=== PATIENT | male | born 1970 | race Caucasian/White ===

== ENCOUNTER 2017-02-08 07:59 | Outpatient (CLI) | payer MEDICAID ==
[~2017-02-08] VITALS: Ht 175.3 cm; Wt 113.6 kg
--- NOTE | ~2017-02-08 | HEMODYNAMI ---
PATIENT:WILMER WEISS MEDICAL RECORD: [id number] : 66 LOCATION:[facility] ADMISSION DATE: 02/08/17 Generatedon:02/08/201710:01 Patient name: WILMER WEISS Patient #: [id number] SSN: D OB: 1970 Date of study: 02/08/2017 Page: Of Hemodynamic Procedure Report Patient Data Patient Demographics Procedure consent was obtained First Name: WILMER Gender: Male Last Name: ISELA : 1970 Middle Initial: W Age: 46 year(s) Patient #: [id number] Race: Additional ID: [id number] Contact details Address: [address] [place] [address] State: [place] City: [place] Zip code: [address] Admission Admission Data Admission Date: 02/08/2017 Admission Time: 7:59 Lab Results Lab Result Date: 02/08/2017 Lab Result Time: 0:00 Biochemistry Name Units Result Min Max BUN mg/dl 29 --(----)-* 7 18 Creatinine mg/dl 1.1 --(--*-)-- 0.6 1.3 CBC Name Units Result Min Max Hemoglobin g/dl 13.9 --(*---)-- 13.5 17.5 Procedure Procedure Types Cath Procedure Diagnostic Procedure [facility] w/Coronaries FFR/IVUS Intra-Coronary IVUS Initial PCI Procedure Coronary Stent Initial Miscellaneous Procedures Moderate Sedation up to 30 minutes Procedure Description Procedure Date Procedure Date: 02/08/2017 Procedure Start Time: 9:28 Procedure End Time: 10:00 Procedure Staff Name Function Eyad Martínez MD Performing Physician Jane Casarez RN Nurse Fatmata Crabtree RT Scrub Julieta Gil RT Monitor Indication Angina Procedure Data Cath Procedure Fluoroscopy Diagnostic fluoroscopy Total fluoroscopy Time: 8.4 time: 8.4 min min Diagnostic fluoroscopy Total fluoroscopy dose: dose: 1879 mGy 1879 mGy Contrast Material Contrast Material Type Amount (ml) Isovue 300 176 Entry Location Entry Primary Successful Side Size Upsize Upsize Entry Closure Zapata ccessful Closure Location (Fr) 1 (Fr) 2 (Fr) Remarks Device Remarks Radial Right 6 Fr Mechanical artery Short Compression Femoral Right 5 Fr 6 Fr Exoseal artery Short Estimated blood loss: 5 ml Diagnostic catheters Device Type Used For End Catheter Placement Diagnostic Terumo 5Fr Multi-vessel Box Elder 110cm catheter Angiography Diagnostic Infinity 5Fr Left Coronary JL 4.0 catheter Angiography Diagnostic Infinity 5Fr Right Coronary AR 2 MOD catheter Angiography Procedure Complications No complications Procedure Medications Medication Administration Route Dosage Oxygen NC 2 l/min Lidocaine 2% added to field 20 Heparin Flush Bag added to field 2 bags (1000units/500ml NS) 0.9% NaCl I.V. 100 ml/hr Versed I.V. 1 mg Fentanyl I.V. 50 mcg Versed I.V. 1 mg Fentanyl I.V. 50 mcg Versed I.V. 1 mg Fentanyl I.V. 50 mcg Versed I.V. 1 mg Fentanyl I.V. 50 mcg Radial Cocktail I.A. 1 syringe (Verapomil 2mg/Nitro 400mcg/Heparin 1500units) Fentanyl I.V. 100 mcg Heparin Bolus I.V. 4000 units Hemodynamics Rest HGB: 13.9 (g/dl) Heart Rate: 55 (bpm) Pressure Samples Time Site Value (mmHg) Purpose Heart Use Rate(bpm) 9:33 LV 64/23,33 Snapshot 77 Snapshots Pre Cath Intra NCS Post Cath Vital Signs Time Heart Resp SPO2 NIBP (mmHg) Rhythm Pain Sedation Rate (ipm) (%) Status Level (bpm) 9:04:47 54 16 99 160/97(139) NSR 0 (11) 10(A) , No pain 9:08:56 65 25 100 170/100(138) NSR 0 (11) 10(A) , No pain 9:13:08 57 20 96 151/93(126) NSR 0 (11) 10(A) , No pain 9:17:14 62 20 96 145/97(118) NSR 0 (11) 10(A) , No pain 9:21:18 59 16 96 142/100(115) NSR 0 (11) 10(A) , No pain 9:25:20 56 18 96 152/104(125) NSR 0 (11) 9(A) , No pain 9:30:31 64 16 97 159/111(133) NSR 0 (11) 9(A) , No pain 9:34:43 72 18 92 136/87(114) NSR 0 (11) 10(A) , No pain 9:38:45 63 16 93 146/90(102) NSR 0 (11) 9(A) , No pain 9:42:48 69 16 94 144/94(112) NSR 0 (11) 9(A) , No pain 9:46:52 70 16 96 158/100(145) NSR 0 (11) 10(A) , No pain 9:51:00 82 19 95 143/104(120) NSR 0 (11) 10(A) , No pain 9:55:02 81 21 96 158/100(117) NSR 0 (11) 10(A) , No pain 9:59:11 69 17 96 139/90(117) NSR 0 (11) 10(A) , No pain Medications Time Medication Route Dose Verified Delivered Reason Notes Effectiveness by by 9:07:14 Oxygen NC 2 l/min Eyad Buffie used for Mauricio Casarez RN procedure 9:07:21 Lidocaine 2% added 20ml Eyad Eyad for local to vial Mauricio Martínez MD anesthetic field 9:07:27 Heparin Flush added 2 bags Eyad Eyad used for Bag to Mauricio Martínez MD procedure (1000units/500ml field NS) 9:07:36 0.9% NaCl I.V. 100 Eyad Buffie Per physician ml/hr Mauricio Casarez RN 9:12:42 Versed I.V. 1 mg Eyad Buffie for sedation Mauricio Casarez RN 9:12:52 Fentanyl I.V. 50 mcg Eyad Buffie for sedation Mauricio Casarez RN 9:17:53 Versed I.V. 1 mg Eyad Buffie for sedation Mauricio Casarez RN 9:17:57 Fentanyl I.V. 50 mcg Eyad Buffie for sedation Mauricio Casarez RN 9:23:55 Versed I.V. 1 mg Eyad Buffie for sedation Mauricio Casarez RN 9:23:57 Fentanyl I.V. 50 mcg Eyad Buffie for sedation Mauricio Casarez RN 9:29:13 Versed I.V. 1 mg Eyad Buffie for sedation Mauricio Casarez RN 9:29:16 Fentanyl I.V. 50 mcg Eyad Lara for sedation Mauricio Casarez RN 9:31:43 Radial Cocktail I.A. 1 Eyad Castano for (Verapomil syringe Mauricio Martínez MD vasodilation 2mg/Nitro 400mcg/Heparin 1500units) 9:37:09 Fentanyl I.V. 100 mcg Eyad Castano for sedation Mauricio Martínez MD 9:47:08 Heparin Bolus I.V. 4000 Eyad Lara for verif ied units Mauricio Casarez RN anticoagulation with dr martínez Procedure Log Time Note 8:49:26 Informed consent obtained and on chart 8:49:42 Diagnostic Cath Status : Elective 8:50:05 Indication : Angina 8:50:30 Jane Casarez RN sent for patient. Start room use. 8:50:32 Time tracking: Regular hours 8:50:37 Plan of Care:Hemodynamics will remain stable., Cardiac rhythm will remain stable., Comfort level will be maintained., Respiratory function will remain adequate., Patient/ family verbilizes understanding of procedure., Procedure tolerated without complication., Recovers from procedure without complications.. 8:57:36 Patient received from Pre/Post Procedure Room to CCL 2 Alert and oriented. Tansferred to table in Supine position. 8:57:37 Warm blankets applied, and otilio hugger turned on for patient comfort. 8:57:37 Correct patient and procedure confirmed by team. 8:57:38 ECG and BP/O2 sat monitors applied to patient. 9:02:22 Full Disclosure recording started 9:03:44 Vital chart was started 9:06:38 Baseline sample Acquired. 9:06:43 Rhythm: sinus rhythm 9:06:56 H&P Date Dictated: 01/26/2017 Within 30 days and on chart., H&P Addendum completed by physician on day of procedure. (MUST COMPLETE FOR ALL OUTPATIENTS). 9:06:57 Pre-procedure instructions explained to patient. 9:06:57 Pre-op teaching completed and patient verbalized understanding. 9:07:08 Family in patients room. 9:07:14 Oxygen 2 l/min NC was administered by Jane Casarez RN; used for procedure; 9:07:21 Lidocaine 2% 20ml vial added to field was administered by Eyad Martínez MD; for local anesthetic; 9:07:27 Heparin Flush Bag (1000units/500ml NS) 2 bags added to field was administered by Eyad Martínez MD; used for procedure; 9::36 0.9% NaCl 100 ml/hr I.V. was administered by Jane Casarez RN; Per physician; 9:07:37 Patient NPO since Midnight. 9::52 Is the patient allergic to Iodine/contrast media? No. 9::53 Was the patient premedicated? No 9::54 Is patient on blood thinner?Yes 9::56 ACC The patient was administered the following blood thiners within the last 24 hours: ACCPlavix 9:08:37 Previous problem with sedation/anesthesia? Yes angry upon awakening 9:09:26 Patient diabetic? No. 9::29 Snore? Yes 9:09:30 Sleep apnea? No 9:09:36 Deviated septum? No 9::38 Opens mouth fully? Yes 9:09:40 Sticks out tongue? Yes 9:09:43 Airway obstruction? No ? 9:09:46 Dentures? No ? 9:09:49 Pre procedure: right dorsailis pedis pulse 1+ Palpable, but thready & weak; easily obliterated 9::53 Pre procedure: left dorsailis pedis pulse 1+ Palpable, but thready & weak; easily obliterated 9:09:56 Patient pain scale 0/10 ?. 9:10:02 IV patent on arrival in left forearm with 0.9% NaCl at [facility]. 9:11:36 Lab Result : BUN 29 mg/dl 9::36 Lab Result : Creatinine 1.1 mg/dl 9:11:36 Lab Result : Hemoglobin 13.9 g/dl 9:11:39 Lab results completed and on chart. 9:11:42 Right Radial & Right Groin area was prepped with chlora-prep and draped in sterile fashion 9::43 Alarms reviewed by R. N. 9:11:43 Sharps counted by scrub and verified by R.N. 9:11:45 Physician arrived 9::46 --------ALL STOP TIME OUT------ 9::46 Final Timeout: patient, procedure, and site verified with staff and physician. All members of the team are in agreement. 9:11:48 Right Radial & Right Groin site verified by team. 9:11:50 Physical assessment completed. ASA score P 2 - A patient with mild systemic disease as per Eyad Martínez MD. 9:11:54 Sedation plan: IV Moderate Sedation Versed, Fentanyl 9:12:42 Versed 1 mg I.V. was administered by Jane Casarez RN; for sedation; 9:12:52 Fentanyl 50 mcg I.V. was administered by Jane Casarez RN; for sedation; 9:15:22 Use device set Radial Dx 9:15:24 Acist Syringe opened to sterile field. 9:15:24 Medline Cath Pack opened to sterile field. 9:15:24 Bag Decanter opened to sterile field. 9:15:25 Terumo 6Fr Slender Glidesheath opened to sterile field. 9:15:25 St Isac 260cm J .035 wire opened to sterile field. 9:15:25 Acist Hand Control opened to sterile field. 9:15:26 Acist Manifold opened to sterile field. 9:15:26 Tegaderm 4 x 4 opened to sterile field. 9:15:27 MBrace Wrist Support opened to sterile field. 9:17:53 Versed 1 mg I.V. was administered by Jane Casarez RN; for sedation; 9:17:57 Fentanyl 50 mcg I.V. was administered by Jane Casarez RN; for sedation; 9:23:55 Versed 1 mg I.V. was administered by Jane Casarez RN; for sedation; 9:23:57 Fentanyl 50 mcg I.V. was administered by Jane Casarez RN; for sedation; 9:27:48 Procedure started. 9:27:50 Zero performed for pressure channel P1 9:28:01 Local anesthetic to right radial artery with Lidocaine 2% by Eyad Martínez MD.INITIAL ACCESS ONLY 9:28:10 A 6 Fr Short sheath was inserted into the Right Radial artery 9:29:13 Versed 1 mg I.V. was administered by Jane Casarez RN; for sedation; 9:29:16 Fentanyl 50 mcg I.V. was administered by Jane Casarez RN; for sedation; 9:31:43 Radial Cocktail (Verapomil 2mg/Nitro 400mcg/Heparin 1500units) 1 syringe I.A. was administered by Eyad Martínez MD; for vasodilation; 9:31:44 A Diagnostic Terumo 5Fr Box Elder 110cm catheter was advanced over the wire and used for Multi-vessel Angiography. 9:33:24 LV hemodynamics recorded. 9:33:31 LV gram done using ASIF 9:33:34 Injector settings: Ml/sec: 5, Volume: 15, 9:33:43 EF : 60 % 9:34:01 Catheter removed. 9:36:05 Terumo 5Fr Donnellson Sheath opened to sterile field. 9:36:15 Local anesthetic to right femoral artery with Lidocaine 2% by Eyad Martínez MD.ADDITIONAL ACCESS 9:37:09 Fentanyl 100 mcg I.V. was administered by Eyad Martínez MD; for sedation; 9:39:20 A 5 Fr sheath was inserted into the Right Femoral artery 9:40:23 A Diagnostic Infinity 5Fr JL 4.0 catheter was advanced over the wire and used for Left Coronary Angiography. 9:41:48 Terumo 6Fr Donnellson Sheath opened to sterile field. 9:42:04 Catheter removed. 9:42:13 Sheath upsized to a 6 Fr Short. 9:42:16 Cordis 6FR XBLAD 3.5 guide catheter opened to sterile field. 9:42:26 6 Fr xblad 3.5 guide catheter was inserted over the wire 9:44:18 LCA angiography performed. 9:44:20 Injector settings: Ml/sec: 3, Volume: 6, 9:44:22 Catheter removed. 9:44:27 A Diagnostic Infinity 5Fr AR 2 MOD catheter was advanced over the wire and used for Right Coronary Angiography. 9:45:45 RCA angiography performed. 9:45:58 Injector settings: Ml/sec: 3, Volume: 6, 9:46:01 Catheter removed. 9:46:02 Proceeding to intervention. 9:46:14 Merit BasixCompak Inflation Kit opened to sterile field. 9:46:15 Duenas Whisper J 300cm 0.014 guide wire opened to sterile field. 9:46:59 Cordis 6FR XBLAD 4.0 guide catheter opened to sterile field. 9:47:08 Heparin Bolus 4000 units I.V. was administered by Jane Casarez RN; for anticoagulation; verified with dr martínez 9:47:10 6 Fr xblad 4 guide catheter was inserted over the wire 9:47:15 whisper wire advanced. 9:47:19 Wire advanced across lesion. 9:47:25 Jackson [place] IVUS Catheter opened to sterile field. 9:47:27 IVUS catheter advanced over wire. 9:51:55 IVUS pass to LAD lesion performed. 9:51:56 IVUS catheter removed over wire. 9:52:55 Inflation Number: 1 A Medtronic Integrity 3.5 X 22 stent was prepped and advanced across the Prox LAD. The stent was deployed at 15 ISMAEL for 0:10 (min:sec). 9:55:02 Inflation Number: 2 A Medtronic Integrity 3.5 X 15 stent was prepped and advanced across the Prox LAD. The stent was deployed at 15 ISMAEL for 0:10 (min:sec). 9:55:10 Stent catheter was removed intact over wire. 9:55:12 Wire removed. 9:55:12 Guide catheter removed. 9:56:10 Cordis 6Fr Exoseal opened to sterile field. 9:56:11 Terumo TR Band Large opened to sterile field. 9:57:09 Sheath removed intact; hemostasis achieved with Mechanical Compression to the Right Radial artery. 9:57:14 Sheath removed intact; hemostasis achieved with Exoseal to the Right Femoral artery. 9:57:24 Procedure ended.(Physican Out) 9:58:21 Fluoroscopy time 08.40 minutes. 9:58:29 Fluoroscopy dose: 1879 mGy 9:58:29 Flurop Dose total: 1879 9:58:34 Contrast amount:Isovue 300 176ml. 9:58:35 Sharps counted by scrub and verified by R.N. 9:58:38 TR band inflated with 10cc of air. 9:58:39 Insertion/operative site no bleeding no hematoma. 9:58:42 Post-op/insertion site Right Femoral artery dressed using a 4 x 4 and Tegaderm. 9:59:03 Post right radial artery:stable 9:59:05 Post Procedure Pulses reassessed and unchanged 9:59:09 Post procedure rhythm: unchanged. 9:59:11 Estimated blood loss: 5 ml 9:59:12 Post procedure instruction explained to patient.Patient verbalizes understanding. 9:59:12 Patient needs reinforcement of post procedure teaching. 9:59:58 Procedure type changed to Cath procedure, Diagnostic procedure, LHC, [facility] w/Coronaries, FFR/IVUS, Intra-Coronary IVUS Initial, PCI procedure, Coronary Stent Initial, Miscellaneous Procedures, Moderate Sedation up to 30 minutes 9:59:59 Procedure and supply charges have been captured, reviewed, submitted and are correct. 10:00:02 Procedure Complication : No complications 10:00:05 Vital chart was stopped 10:00:06 See physician's report for complete and final results. 10:00:09 Report given to Pre/Post Procedure Room. 10:00:12 Patient transfered to Pre/Post Procedure Room with Stretcher. 10:00:15 Procedure ended. 10:00:15 Full Disclosure recording stopped 10:00:23 ACC-PCI Only Patient was given prescriptions, or instructed by Eyad Martínez MD to start/continue the following medications upon discharge: Plavix 10:00:24 End room use (Document Last) Intervention Summary Intervention Notes Time ActionType Lesion and Equipment Action# Pressure Duration Attributes Used 9:52:55 Place stent Prox LAD Medtronic 1 15 00:10 Integrity 3.5 X 22 stent 9:55:02 Place stent Prox LAD Medtronic 2 15 00:10 Integrity 3.5 X 15 stent Device Usage Item Name Manufacture Quantity Catalog Hospital Part Current Minimal Lot# / Number Charge Number Stock Stock Serial# Code Acist Acist 1 96420 307871 659901 562180 20 Syringe Medical Systems Inc Medline Cardinal 1 [id number] 110099 78019 197639 5 Cath Pack Health Bag Microtek 1 2001S 720763 37868 075069 5 Mobile[employer] Inc. Terumo 6Fr Terumo 1 [id number] 620519 925500 517833 [address] Isac St Isac 1 983315 748484 415249 155217 30 260cm J .035 wire Acist Hand Acist 1 01012 651338 094008 025953 5 Control Medical Systems Inc Acist Acist 1 19996 593961 626663 435441 5 Manifold Medical Systems Inc Tegaderm 4 3M 1 1626W 489368 903054 406113 5 x 4 MBrace Advanced 1 140-0250-00 274179 96555 815126 5 Wrist Vascular Support Dynamics Diagnostic Terumo 1 33-6354 780932 402839 935471 5 Terumo 5Fr Box Elder 110cm catheter Terumo 5Fr Terumo 1 [id number] 283074 611773 557582 40 Donnellson Sheath Diagnostic Cardinal 1 [id number] 151338 002893 221086 10 W[employer]Iity Health 5Fr JL 4.0 catheter Terumo 6Fr Terumo 1 [id number] 744554 134720 990065 40 Donnellson Sheath Cordis 6FR Cardinal 1 [id number] 959443 127698 679544 10 XBLAD 3.5 Health guide catheter Diagnostic Cardinal 1 [id number] 534318 172193 987767 20 WISHIity Health 5Fr AR 2 MOD catheter Merit Merit 1 [id number] 502458 936322 830352 15 Brandle Medical Inflation Kit Duenas Duenas 1 [id number] 715976 369787 836717 5 Whisper J Vascular 300cm 0.014 guide wire Cordis 6FR Cardinal 1 [id number] 524447 874344 701760 3 XBLAD 4.0 Health guide catheter Jackson Jackson 1 [id number] 265936 360646 187300 8 [place] IVUS Catheter Medtronic Medtronic 1 [id number] 367600 756314 7 [id number] Integrity 3.5 X 22 stent Medtronic Medtronic 1 [id number] 800954 351152 9 [id number] Integrity 3.5 X 15 stent Cordis 6Fr Cardinal 1 EX600 117266 425466 797569 10 [facility] Terumo TR Terumo 1 [id number] 674780 677446 863100 40 Band Large Signature Audit [place] Stage Time Signature Unsigned Intra-Procedure 02/08/2017 Julieta Gil 10:01:45 AM RT(R) Signatures Monitor : Julieta Gil RT Signature : Date : Time : [facility] [address] [place] [address]
[2017-02-08] MEDS ORDERED: PLAVIX75 MG PO ×2 (08:14→10:06)
[2017-02-08] MEDS ORDERED: PROTONIX40 MG PO (08:14)
[2017-02-08] MEDS ORDERED: ZESTRIL40 MG PO (08:14)
[2017-02-08] MEDS ORDERED: EFFEXOR XR150 MG PO (08:14)
[2017-02-08] MEDS ORDERED: GEMFIBROZIL600 MG PO (08:15)
[2017-02-08 08:25] VITALS: BP 137/71; Ht 175.3 cm; Wt 113.6 kg
[2017-02-08 08:36] LABS: BASOPHILS 0 % (0-2); EOSINOPHILS 2.4 % (0-7); HEMATOCRIT 39.6 % (42.0-54.0); HEMOGLOBIN 13.9 g/dL (13.5-17.5); IMMATURE GRANULOCYTES 0.6 % (0-5); LYMPHOCYTES 28.4 % (15-50); MCHC 35.1 g/dL (31.0-37.0); MCV 91.2 fL (80.0-100.0); MONOCYTES 9.5 % (2-11); NEUTROPHILS 59.1 % (40-80); PLATELET COUNT 246 10x3/uL (130-400); RBC 4.34 10x6/uL (4.20-6.10); RDW 12.5 % (11.5-14.5); WBC 6.8 10x3/uL (4.8-10.8)
[2017-02-08 09:02] LABS: CALC OSMOLALITY 279 mosm/kg (275-300); CALCIUM 9.6 mg/dL (8.5-10.1); CARBON DIOXIDE 26.4 mmol/L (21.0-32.0); CHLORIDE - SERUM 103 mmol/L (98-107); CREATININE - SERUM 1.1 mg/dL (0.6-1.3); GLUCOSE 104 mg/dL (74-106); POTASSIUM - SERUM 4.3 mmol/L (3.5-5.1); SODIUM 137 mmol/L (136-145); UREA NITROGEN 29 mg/dL (7-18); eGFR NON AFRICAN AMERICAN 76 mL/min (90-120)
[2017-02-08] MEDS ORDERED: BAYER CHEWABLE81 MG PO (10:09)
--- NOTE | 2017-02-08 10:21 | NUR ---
1010 RECEIVED PT FROM PECAN SHELLER.PT IS DROWSY. RR IS EVEN AND UNLABORED ON ROOM AIR. BP IS 126/72, SINUS BRADYCARDIA WITH RATE OF 57. PT DENIES ANY C/O CHEST PAIN. TR BAND TO RIGHT WRIST IS CDI, AREA IS FREE FROM BLEEDING OR HEMATOMA. FINGERS WARM, CAP REFILL IS BRISK. EXOSEAL TO RIGHT GROIN IS CDI, AREA IS SOFT AND NONTENDER. PEDAL PULSES PALPABLE. CALL LIGHT IN REACH. INSTRUCTED PT TO KEEP HEAD TO PILLOW AND RIGHT LEG STRAIGHT AND AVOID BENDING AND FLEXING RIGHT WRIST. AT BEDSIDE.
--- NOTE | 2017-02-08 10:29 | NUR ---
1025 PT MOVING LEGS AND LIFTING HIPS FROM BED. GROIN AND RIGHT WRIST ARE STABLE WITH NO BLEEDING OR HEMATOMA NOTED. REINSTRUCTED PT TO KEEP RIGHT LEG STRAIGHT AND AVOID USE OF RIGHT WRIST TO PREVENT BLEEDING AND PT VERBALIZES UNDERSTANDING. AT BEDSIDE, CALL SRI IN REACH. DENIES ANY C/O AT THIS TIME.
--- NOTE | 2017-02-08 10:44 | NUR ---
1040 PT SLEEPING, AWAKENS EASILY, DENIES ANY C/O. NO BLEEDING OR HEMATOMA NOTED AT CATH SITES, FINGERS WARM, CAP REFILL IS BRISK. PEDAL PULSES PALPABLE. AT BEDSIDE, CALL LIGHT IN REACH. VSS.
--- NOTE | 2017-02-08 11:55 | NUR ---
TR BAND R/WRIST CDI NO BLEEDING NO HEMATOMA NOTED. 6 FR EXOSEAL R/GROIN CDI NO BLEEDING NO HEMATOMA NOTED. HR 53 BP 118/74. CHEST PAIN IS DENIED. INSTRUCTED PATIENT TO KEEP HEAD FLAT ON PILLOW WITH RLE STRAIGHT
--- NOTE | 2017-02-08 12:25 | NUR ---
1225 PT BHARATHI PO FLUIDS WITH NO C/O NAUSEA. EXOSEAL TO RIGHT GROIN IS CDI, AREA IS SOFT AND NONTENDER, PEDAL PULSES PALPABLE. TR BAND TO RIGHT WRIST IS CDI, NO BLEEDING OR HEMATOMA NOTED. FINGERS WARM, CAP REFILL IS BRISK. VSS, AT BEDSIDE, CALL LIGHT IN REACH.
--- NOTE | 2017-02-08 13:17 | NUR ---
1310 PT DENIES ANY C/O. TR BAND DEFLATION UNDERWAY WITH NO BLEEDING OR HEMATOMA NOTED AT TR BAND. RIGHT GROIN EXOSEAL IS CDI, AREA SOFT AND NONTENDER. PT HAS VOIDED 550 CC CLEAR YELLOW URINE TO URINAL.
--- NOTE | 2017-02-08 13:34 | NUR ---
1335 HOB ELEVATED 45 DEGREES, NO BLEEDING OR HEMATOMA NOTED AT EITHER CATH SITE. PT DENIES ANY C/O. AT BEDSIDE, SANDWICH SERVED.
--- NOTE | 2017-02-08 13:52 | NUR ---
1350 DC INSTRUCTIONS REVIEWED WITH PT AND WHO VERBALIZE UNDERSTANDING. RX FOR PLAVIX CALLED TO STANISLAW MENDOZA AT [facility], INSTRUCTED PT TO PICK THIS MEDICATION UP ON HIS WAY HOME AND START TAKING IT TOMORROW. TR BAND REMOVED AND 2X2, TEGADERM PLACED TO SITE. IV DC'D WITH CATH INTACT.
--- NOTE | 2017-02-08 14:04 | NUR ---
1400 DRESSINGS TO RIGHT WRIST AND RIGHT GROIN ARE CDI WITH NO BLEEDING OR HEMATOMA NOTED, RIGHT WRIST IMMOBILIZER IN PLACE. PT IS DRESSED FOR DC TO HOME. PT ESCORTED TO PRIVATE AUTO VIA WC BY STAFF WITH DRIVING HIM HOME.
--- NOTE | 2017-02-10 16:47 | OP ---
PATIENT NAME: WILMER WEISS MEDICAL RECORD: [id number] :66 LOCATION:D.CAT ADMISSION DATE: SURGEON: MANNIE CANO MD DATE OF OPERATION: 02/08/2017 PROCEDURES: 1. PTCA stent to LAD. 2. Intravascular ultrasound to the LAD. 3. Left heart catheterization. 4. Selective coronary angiography. 5. Left ventriculogram. INDICATION: Angina and coronary artery disease. PROCEDURE IN DETAIL: After informed consent was obtained and after detailed explanation of risks, benefits as well as alternative therapies, the patient elected to proceed with angiogram and angioplasty. The right femoral area was prepped and draped in normal sterile fashion. The right femoral artery was cannulated via modified Seldinger technique with placement of 6-Serbian sheath. All catheters exchanged through this sheath. FINDINGS: Left ventriculogram was performed in standard 30-degree ASIF view, reveals good cardiac wall motion throughout all segments. Overall ejection fraction estimated at 55-60%. SELECTIVE CORONARY ANGIOGRAPHY: 1. Left main showed no significant angiographic disease. 2. Left anterior descending has greater than 70% stenosis proximally confirmed by intravascular ultrasound. 3. Left circumflex has moderate irregularities, but no flow-limiting stenosis. 4. Right coronary has moderate irregularities, but no flow-limiting stenosis. PTCA STENT OF THE LAD: The stents used are 3.5 x 22 and 3.5 x 15 both Integrity stents. Result was 0% residual stenosis. OVERALL IMPRESSION: Successful percutaneous transluminal coronary angioplasty stent of the left anterior descending going from greater than 70% initial stenosis to 0% residual stenosis. TRANSINT:[id number] Voice Confirmation ID: [id number] DOCUMENT ID: [id number] MANNIE CANO MD at 1647 CC: [id number] DICTATION DATE: 02/08/17 1001 CLINICAL ACCOUNT SPECIALIST: 02/08/17 1103 DEP CLI 02/08/17 [place] [id number] [place] [id number]
== END 2017-02-08 14:00 | disposition home or self-care (01) ==
LOC: D.CATH 07:59
PROVIDERS: Internal Medicine Interventional Cardiology
DX: I20.9 Angina pectoris, unspecified (principal); R94.30 Abnormal result of cardiovascular function study, unspecified; R06.02 Shortness of breath; R00.1 Bradycardia, unspecified; I10 Essential (primary) hypertension; R07.9 Chest pain, unspecified; Z01.812 Encounter for preprocedural laboratory examination

== ENCOUNTER 2017-04-13 05:46 | Observation (INO) | payer MEDICAID ==
[~2017-04-13] VITALS: Ht 175.3 cm; Wt 117.2 kg
--- NOTE | ~2017-04-13 | HEMODYNAMI ---
PATIENT:WILMER WEISS MEDICAL RECORD: [id number] : 66 LOCATION:[facility] D.2116 ADMISSION DATE: 04/13/17 Generatedon:04/14/20179:06 Patient name: WILMER WEISS Patient #: [id number] SSN: D OB: 1970 Date of study: 04/14/2017 Page: Of Hemodynamic Procedure Report Patient Data Patient Demographics Procedure consent was obtained First Name: WILMER Gender: Male Last Name: ISELA : 1970 Middle Initial: W Age: 47 year(s) Patient #: [id number] Race: Additional ID: [id number] Contact details [address]: [address] [place] [address] State: [place] City: [place] Zip code: [address] Admission Admission Data Admission Date: 04/13/2017 Admission Time: 7:02 Room #: D.2116 Lab Results Lab Result Date: 04/14/2017 Lab Result Time: 0:00 Biochemistry Name Units Result Min Max BUN mg/dl 24 --(----)-* 7 18 Creatinine mg/dl 1.3 --(---*)-- 0.6 1.3 CBC Name Units Result Min Max Hemoglobin g/dl 13.1 -*(----)-- 13.5 17.5 Procedure Procedure Types Cath Procedure Diagnostic Procedure [facility] w/Coronaries PCI Procedure Coronary Stent Coronary Stent Initial PTCA PTCA Additional Miscellaneous Procedures Moderate Sedation up to 30 minutes Procedure Description Procedure Date Procedure Date: 04/14/2017 Procedure Start Time: 8:25 Procedure End Time: 9:06 Procedure Staff Name Function Tigre Nunez MD Performing Physician Hina Henderson RT Scrub Efrain Richard RT Monitor Jane Casarez RN Nurse Procedure Data Cath Procedure Fluoroscopy Diagnostic fluoroscopy Total fluoroscopy Time: 7 time: 7 min min Diagnostic fluoroscopy Total fluoroscopy dose: dose: 1319 mGy 1319 mGy Contrast Material Contrast Material Type Amount (ml) Isovue 300 98 Entry Location Entry Primary Successful Side Size Upsize Upsize Entry Closure Succes sful Closure Location (Fr) 1 (Fr) 2 (Fr) Remarks Device Remarks Femoral Right 5 Fr 6 Fr Exoseal artery Short Estimated blood loss: 10 ml Diagnostic catheters Device Type Used For End Catheter Placement MULTIPACK JL 4.0 5Fr Procedure catheter MULTIPACK 3DRC 5Fr Procedure catheter MULTIPACK Pigtail 5 Fr Procedure catheter Procedure Complications No complications Procedure Medications Medication Administration Route Dosage Oxygen NC 2 l/min Lidocaine 2% added to field 20 Heparin Flush Bag added to field 2 bags (1000units/500ml NS) 0.9% NaCl I.V. 100 ml/hr Versed I.V. 2 mg Fentanyl I.V. 25 mcg Angiomax (bolus) I.V. 17 ml Angiomax Drip I.V. drip 41 ml/hr (250mg/50ml NS) (Standard) Angiomax Drip 41 ml/hr (250mg/50ml NS) (Standard) Hemodynamics Rest HGB: 13.1 (g/dl) Heart Rate: 56 (bpm) Pressure Samples Time Site Value (mmHg) Purpose Heart Use Rate(bpm) 8:30 AO 152/98(120) Snapshot 62 8:37 LV 169/14,44 EDP 68 8:38 LV 145/-10,11 EDP 53 8:38 AO 143/70(96) Pullback 61 8:38 LV 135/5,25 Pullback 61 Gradients Valve Time Site 1 Site 2 Mean SEP/DFP Peak To Heart Use (mmHg) (sec/min) Peak Rate (mmHg) (bpm) Aortic 8:38 LV AO 0 17 0 61 135/5,25 143/70(96) Calculations Valve P-P Mean Valve Index Valve Source Name Gradient Area Flow (cm2) Aortic 0 0 0 0 Snapshots Pre Cath Intra NCS Post Cath Vital Signs Time Heart Resp SPO2 etCO2 NIBP (mmHg) Rhythm Pain Sedation Rate (ipm) (%) (mmHg) Status Level (bpm) 8:09:18 54 21 95 0 158/88(127) NSR 0 (11) 10(A) , No pain 8:14:15 60 24 97 0 158/90(124) NSR 0 (11) 10(A) , No pain 8:19:12 55 20 96 0 148/84(121) NSR 0 (11) 10(A) , No pain 8:24:09 61 20 98 25.7 140/80(101) NSR 0 (11) 10(A) , No pain 8:28:59 60 21 98 35.5 136/80(96) NSR 0 (11) 10(A) , No pain 8:33:51 63 25 98 37 149/83(116) NSR 0 (11) 10(A) , No pain 8:38:43 60 23 98 34 139/81(113) NSR 0 (11) 10(A) , No pain 8:43:32 58 14 99 36.3 141/79(111) NSR 0 (11) 10(A) , No pain 8:48:25 58 18 98 37 135/78(98) NSR 0 (11) 10(A) , No pain 8:53:16 56 21 98 35.5 140/82(107) NSR 0 (11) 10(A) , No pain 8:58:09 53 20 99 38.5 153/77(112) NSR 0 (11) 10(A) , No pain 9:03:00 57 16 99 32.5 145/85(117) NSR 0 (11) 10(A) , No pain Medications Time Medication Route Dose Verified Delivered Reason Notes Effectiveness by by 8:20:16 Oxygen NC 2 Tigre Buffie used for l/min Mayra Casarez RN procedure 8:20:25 Lidocaine 2% added to field 20ml Tigre Tigre for local vial Mayra Nnuez MD anesthetic 8:20:31 Heparin Flush added to field 2 Tigre Tigre used for Bag bags Mayra Nunez MD procedure (1000units/500ml NS) 8:20:40 0.9% NaCl I.V. 100 Tigre Buffie Per physici an ml/hr Mayra Casarez RN, MD 8:25:19 Versed I.V. 2 mg Tigre Buffie for sedatio n Mayra Casarez RN, MD 8:25:26 Fentanyl I.V. 25 Tigre Buffie for sedatio n mcg Mayra Casarez RN, MD 8:45:43 Angiomax (bolus) I.V. 17 ml Tigre Buffie for Mayra Casarez RN anticoagulation 8:46:00 Angiomax Drip I.V. drip 41 Tigre Buffie for (250mg/50ml NS) ml/hr Mayra Casarez RN anticoagulation (Standard) 8:59:16 Angiomax Drip I.V. 41 Tigre Jane for (250mg/50ml NS) drip-discontinued. ml/hr Mayra Casarez RN anticoagulation (Standard) Procedure Log Time Note 7:51:12 Time tracking: Regular hours 7:51:16 Plan of Care:Hemodynamics will remain stable., Cardiac rhythm will remain stable., Comfort level will be maintained., Respiratory function will remain adequate., Patient/ family verbilizes understanding of procedure., Procedure tolerated without complication., Recovers from procedure without complications.. 7:51:20 aJne Casarez RN sent for patient. Start room use. 7:51:42 H&P Date Dictated: 04/13/2017 Within 30 days and on chart.. 7:52:13 Lab Result : BUN 24 mg/dl 7:52:13 Lab Result : Creatinine 1.3 mg/dl 7:52:13 Lab Result : Hemoglobin 13.1 g/dl 8:02:13 Patient received from Med II to CCL 1 Alert and oriented. Tansferred to table in Supine position. 8:02:14 Warm blankets applied, and otilio hugger turned on for patient comfort. 8:02:15 Correct patient and procedure confirmed by team. 8:02:17 Signed procedure consent form obtained from patient. 8:02:18 ECG and BP/O2 sat monitors applied to patient. 8:08:03 Vital chart was started 8:17:41 Baseline sample Acquired. 8:17:46 Rhythm: sinus rhythm 8:17:47 Full Disclosure recording started 8:17:48 Pre-procedure instructions explained to patient. 8:17:49 Pre-op teaching completed and patient verbalized understanding. 8:17:56 Family in patients room. 8:17:58 Patient NPO since Midnight. 8:18:05 Is the patient allergic to Iodine/contrast media? No. 8:18:07 Is patient on blood thinner?Yes 8:18:10 ACC The patient was administered the following blood thiners within the last 24 hours: ACCPlavix 8:18:15 Patient diabetic? No. 8:18:18 Previous problem with sedation/anesthesia? No ? 8:18:20 Snore? No 8:18:21 Sleep apnea? No 8:18:22 Deviated septum? No 8:18:23 Opens mouth fully? Yes 8:18:24 Sticks out tongue? Yes 8:18:26 Airway obstruction? No ? 8:18:29 Dentures? No ? 8:18:31 Pre procedure: right dorsailis pedis pulse 1+ Palpable, but thready & weak; easily obliterated 8:18:33 Patient pain scale 0/10 ?. 8:18:39 IV right forearm D/C'd due to infiltration. 8:18:50 IV started by Jane Casarez RN inleft forearm with a 22 gauge IV catheter with 0.9% NaCl at KVO. 8:19:07 Lab results completed and on chart. 8:19:09 Right groin area was prepped with chlora-prep and draped in sterile fashion 8:19:10 Alarms reviewed by R. N. 8:19:11 Sharps counted by scrub and verified by R.N. 8:19:37 Use device set Femoral Dx 8:19:54 Tegaderm 4 x 4 (1626W) opened to sterile field. 8:19:55 ACIST Hand Control (24866) opened to sterile field. 8:19:56 ACIST Manifold (11868) opened to sterile field. 8:19:58 ACIST Syringe (47786) opened to sterile field. 8:19:58 Bag Decanter (2002S) opened to sterile field. 8:19:58 Medline Cath Pack ([id number]) opened to sterile field. 8:19:59 Terumo 5Fr Aurora Sheath opened to sterile field. 8:19:59 St Isac 260cm J .035 wire opened to sterile field. 8:20:00 22g IV Catheter opened to sterile field. 8:20:01 IV Extension Set opened to sterile field. 8:20:02 DIAGNOSTIC Multipack 5Fr catheter set (VX1261) opened to sterile field. 8:20:05 Cook 4Fr Micropuncture (S96081) opened to sterile field. 8:20:16 Oxygen 2 l/min NC was administered by Jane Casarez RN; used for procedure; 8:20:25 Lidocaine 2% 20ml vial added to field was administered by Tigre Nunez MD; for local anesthetic; 8:20:31 Heparin Flush Bag (1000units/500ml NS) 2 bags added to field was administered by Tiger Nunez MD; used for procedure; 8:20:40 0.9% NaCl 100 ml/hr I.V. was administered by Jane Casarez RN; Per physician; 8:22:59 --------ALL STOP TIME OUT------ 8:23:00 Final Timeout: patient, procedure, and site verified with staff and physician. All members of the team are in agreement. 8:23:02 Right groin site verified by team. 8:23:04 Physical assessment completed. ASA score P 2 - A patient with mild systemic disease as per Tigre Nunez MD. 8:23:12 Sedation plan: IV Moderate Sedation Medication:Versed, Fentanyl 8:25:19 Versed 2 mg I.V. was administered by Jane Casarez RN; for sedation; 8:25:26 Fentanyl 25 mcg I.V. was administered by Jane Casarez RN; for sedation; 8:25:40 Procedure started. 8:25:46 Local anesthetic to right femoral artery with Lidocaine 2% by Tigre Nunez MD.INITIAL ACCESS ONLY 8:28:33 Access obtained with 4Fr micropunture. 8:28:43 A 5 Fr sheath was inserted into the Right Femoral artery 8:30:04 A MULTIPACK JL 4.0 5Fr catheter was advanced over the wire and used for Procedure. 8:30:41 LCA angiography performed. 8:33:39 Catheter exchanged over wire. 8:34:34 A MULTIPACK 3DRC 5Fr catheter was advanced over the wire and used for Procedure. 8:35:19 RCA angiography performed. 8:35:42 Catheter exchanged over wire. 8:35:48 A MULTIPACK Pigtail 5 Fr catheter was advanced over the wire and used for Procedure. 8:38:02 Zero performed for pressure channel P1 8:38:49 LV angiography performed. 8:38:56 LV gram done using ASIF 8:39:14 EF : 65 % 8:39:20 LV hemodynamics recorded. 8:39:24 Injector settings: Ml/sec: 12, Volume: 8, 8:39:29 Catheter exchanged over wire. 8:43:03 Sheath upsized to a 6 Fr Short. 8:43:34 Terumo 6Fr Aurora Sheath opened to sterile field. 8:43:35 Copilot Bleedback Control Valve opened to sterile field. 8:43:35 Duenas BMW [place] II J-Tip 190cm wire opened to sterile field. 8:43:36 Duenas BMW [place] II J-Tip 190cm wire opened to sterile field. 8:43:36 INFLATOR Merit RecurlyCompak Inflation Kit (EH9500) opened to sterile field. 8:43:37 Cordis 6FR XBLAD 4.0 guide catheter opened to sterile field. 8:44:02 6 Fr XBLAD 4 guide catheter was inserted over the wire 8:44:10 Study PCI Site: [place] mLAD has 80% stenosis. 8:44:15 Study PCI Site: [place] Diag1 has 90% stenosis. 8:44:17 ACC Pre-intervention ROSITA Flow is 3. 8:45:07 BMW wire advanced. 8:45:43 Angiomax (bolus) 17 ml I.V. was administered by Jane Casarez RN; for anticoagulation; 8:45:56 Wire advanced down the LAD. 8:46:00 Angiomax Drip (250mg/50ml NS) (Standard) 41 ml/hr I.V. drip was administered by Jane Casarez RN; for anticoagulation; 8:46:28 2nd BMW wire advanced. 8:48:12 2nd BMW wire advanced down the DIAG. 8:51:55 Inflation number: 1 A EUPHORA 2.0 x 15 Balloon ([id number]) was prepped and advanced across the 1st Diag, then inflated to 10 ISMAEL for 0:10 (min:sec). 8:52:15 Balloon removed over the wire. 8:57:09 Inflation Number: 1 A Simon RX 3.5 x 30 stent was prepped and advanced across the Mid LAD. The stent was deployed at 12 ISMAEL for 0:10 (min:sec). 8:58:24 Stent catheter was removed intact over wire. 8:58:25 Wire removed. 8:58:25 Guide catheter removed. 8:58:27 ACC Post-intervention ROSITA Flow is 3. 8:58:30 EXOSEAL 6Fr (EX600) opened to sterile field. 8:58:40 Sheath removed intact; hemostasis achieved with Exoseal to the Right Femoral artery. 8:58:45 Procedure ended.(Physican Out) 8:59:16 Angiomax Drip (250mg/50ml NS) (Standard) 41 ml/hr I.V. drip-discontinued. was administered by Jane Casarez RN; for anticoagulation; 9:00:14 Fluoroscopy time 07.00 minutes. 9:00:19 Flurop Dose total: 1319 9:00:19 Fluoroscopy dose: 1319 mGy 9:00:24 Contrast amount:Isovue 300 98ml. 9:00:25 Sharps counted by scrub and verified by R.N. 9:00:27 Insertion/operative site no bleeding no hematoma. 9:00:34 Post-op/insertion site Right Femoral artery dressed using a 4 x 4 and Tegaderm. 9:00:35 Post Procedure Pulses reassessed and unchanged 9:00:37 Post-procedure physical assessment completed. ASA score P 2 - A patient with mild systemic disease as per Tigre Nunez MD. 9:00:40 Post procedure rhythm: unchanged. 9:00:43 Estimated blood loss: 10 ml 9:00:44 Patient needs reinforcement of post procedure teaching. 9:00:46 Post procedure instruction explained to patient.Patient verbalizes understanding. 9:01:04 Procedure type changed to Cath procedure, Diagnostic procedure, LHC, LHC w/Coronaries, PCI procedure, Coronary Stent, Coronary Stent Initial, PTCA, PTCA Additional, Miscellaneous Procedures, Moderate Sedation up to 30 minutes 9:01:07 Procedure Complication : No complications 9:01:36 Procedure and supply charges have been captured, reviewed, submitted and are correct. 9:05:55 Vital chart was stopped 9:05:55 See physician's report for complete and final results. 9:05:57 Report given to PCU. 9:06:00 Patient transfered to PCU with Bed. 9:06:02 Procedure ended. 9:06:02 Full Disclosure recording stopped 9:06:10 End room use (Document Last) Intervention Summary Intervention Notes Time ActionType Lesion and Equipment Action# Pressure Duration Attributes Used 8:51:55 Inflate 1st Diag EUPHORA 1 10 00:10 balloon 2.0 x 15 Balloon ([id number]) 8:57:09 Place stent Mid LAD Simon RX 1 12 00:10 3.5 x 30 stent Device Usage Item Name Manufacture Quantity Catalog Hospital Part Current Min imal Lot# / Number Charge Number Stock Stock Serial# Code Tegaderm 4 x 3M 1 1626W 939006 353173 146933 5 4 (1626W) ACIST Hand Acist 1 95847 767598 863366 371009 5 Control Medical (32943) Systems Inc ACIST Acist 1 49897 193561 900840 429855 5 Manifold Medical (40057) Systems Inc ACIST Syringe Acist 1 94849 544233 408506 377161 20 (74999) Medical Systems Inc Bag Decanter Microtek 1 2001S 820446 39180 058835 5 (2001S) Medical Inc. Medline Cath Cardinal 1 [id number] 713495 68710 298584 5 Pack Health ([id number]) Terumo 5Fr Terumo 1 RGM207 194891 144078 120818 [address] Isac 260cm St Isac 1 091434 012782 270652 412994 30 J .035 wire 22g IV B. Cardenas 1 2466571-79 581983 089643 061090 5 Catheter IV Extension Hospira 1 72944-27 548631 52152 195052 5 Set DIAGNOSTIC Cardinal 1 ZW5974 136375 80123 573922 30 Multipack 5Fr Health catheter set (MX6322) Cook 4Fr Cook Medical 1 H19316 976819 896574 671668 5 Micropuncture (P16420) MULTIPACK JL Cardinal 1 468844 5 4.0 5Fr Health catheter MULTIPACK Cardinal 1 085208 5 3DRC 5Fr Health catheter MULTIPACK Cardinal 1 667020 5 Pigtail 5 Fr Health catheter Terumo 6Fr Terumo 1 FUU905 630938 604660 459123 40 Aurora Sheath Copilot Duenas 1 2730017 935142 649999 305778 5 Bleedback Vascular Control Valve Duenas BMW Duenas 2 [id number] 080658 32050 818754 5 [place] II Vascular J-Tip 190cm wire INFLATOR Merit 1 PR4204 473730 122207 630358 15 [facility] BasixCompak Inflation Kit (YM8626) Cordis 6FR Cardinal 1 [id number] 231847 983444 955900 3 XBLAD 4.0 Health guide catheter EUPHORA 2.0 x Medtronic 1 [id number] 071084 474132 404562 5 [id number] 15 Balloon ([id number]) Simon RX 3.5 x Medtronic 1 [id number] 927027 6334955 950562 5 [id number] 30 stent EXOSEAL 6Fr Cardinal 1 EX600 504350 782550 735659 10 (EX600) Health Signature Audit [place] Stage Time Signature Unsigned Intra-Procedure 04/14/2017 Efrain Richard 9:06:26 AM RT(R) Signatures Monitor : Efrain Richard RT Signature : Date : Time : [place] [id number] [facility] [address]
[~2017-04-13 05:46] MED LIST: BAYER CHEWABLE81 MG PO; EFFEXOR XR150 MG PO; GEMFIBROZIL600 MG PO; PLAVIX75 MG PO; PROTONIX40 MG PO; ZESTRIL40 MG PO
[2017-04-13 06:04] LABS: BASOPHILS 0.3 % (0-2); EOSINOPHILS 3.2 % (0-7); HEMATOCRIT 40.2 % (42.0-54.0); HEMOGLOBIN 13.7 g/dL (13.5-17.5); IMMATURE GRANULOCYTES 0.3 % (0-5); LYMPHOCYTES 24.6 % (15-50); MCH 31.6 pg (26.0-34.0); MCHC 34.1 g/dL (31.0-37.0); MCV 92.8 fL (80.0-100.0); MEAN PLATELET VOLUME 9.9 fL (7.4-10.4); MONOCYTES 12.3 % (2-11); NEUTROPHILS 59.3 % (40-80); PLATELET COUNT 257 10x3/uL (130-400); RBC 4.33 10x6/uL (4.20-6.10); RDW 12.9 % (11.5-14.5); WBC 6.2 10x3/uL (4.8-10.8)
[2017-04-13 06:49] LABS: ALBUMIN 4.1 g/dL (3.4-5.0); ALKALINE PHOSPHATASE 101 U/L (46-116); ALT (SGPT) 44 U/L (10-68); BILIRUBIN - TOTAL 0.32 mg/dL (0.2-1.3); CALC OSMOLALITY 280 mosm/kg (275-300); CALCIUM 9.3 mg/dL (8.5-10.1); CARBON DIOXIDE 24.8 mmol/L (21.0-32.0); CHLORIDE - SERUM 102 mmol/L (98-107); CREATININE - SERUM 1.4 mg/dL (0.6-1.3); GLUCOSE 118 mg/dL (74-106); POTASSIUM - SERUM 4.1 mmol/L (3.5-5.1); PROTEIN - SERUM 8.4 g/dL (6.4-8.2); SODIUM 137 mmol/L (136-145); UREA NITROGEN 29 mg/dL (7-18); eGFR NON AFRICAN AMERICAN 57 mL/min (90-120)
[2017-04-13 07:04] LABS: CHOL - HDL RATIO 6.4 ratio (2.3-4.9); CHOLESTEROL, TOTAL 219 mg/dL (0-200); CKMB 1.7 U/L (0.0-3.6); CREATINE KINASE 347 UL (21-232); HDL CHOLESTEROL 34 mg/dL (32-96); LDL CHOLESTEROL 138 mg/dL (0-100); LDL-HDL RATIO 4.1 ratio (1.5-3.5); PRO BNP 85 pg/mL (0-125); TRIGLYCERIDE 236 mg/dL (30-200)
--- NOTE | 2017-04-13 08:41 | NUR ---
TRANSFER FROM ER BY W/C. GIGIINTED TO ROOM. CALL LIGHT IN REACH. WILL CONT. PLAN OF CARE.
[2017-04-13 08:48] VITALS: BP 135/78; BMI 39.2
[2017-04-13 09:09] VITALS: Ht 175.3 cm; Wt 117.2 kg
[2017-04-13 12:00] VITALS: BP 98/32
--- NOTE | 2017-04-13 15:29 | NUR ---
IV RESTARTED TO RIGHT FA WITH 22 GAUGE CATH X 1 STICK AND FLUSHED WITH NS. LINE IS PATENT.
--- NOTE | 2017-04-13 20:42 | NUR ---
PT SITTING IN CHAIR, AWAKE, ALERT, ORIENTED, FAMILY AT SIDE, ASKING WHAT TIME HE WILL GO TO [address] [employer] IN THE MORNING. NO NEEDS AT THIS TIME. CONTINUE TO MONITOR CLOSELY.
[2017-04-13 21:00] VITALS: BP 135/71
[2017-04-14 01:05] VITALS: BP 115/50
[2017-04-14 05:22] VITALS: BP 107/60
[2017-04-14 06:01] LABS: HEMATOCRIT 37.2 % (42.0-54.0); HEMOGLOBIN 13.1 g/dL (13.5-17.5); LYMPHOCYTES 20.2 % (15-50); MCH 31.3 pg (26.0-34.0); MCHC 35.2 g/dL (31.0-37.0); MCV 88.8 fL (80.0-100.0); MEAN PLATELET VOLUME 9.8 fL (7.4-10.4); NEUTROPHILS 65.3 % (40-80); PLATELET COUNT 223 10x3/uL (130-400); RBC 4.19 10x6/uL (4.20-6.10); RDW 12.2 % (11.5-14.5)
[2017-04-14 06:05] LABS: ALBUMIN 3.8 g/dL (3.4-5.0); ANION GAP 14.1 mmol/L (8-16); BILIRUBIN - TOTAL 0.6 mg/dL (0.2-1.3); CALCIUM 9.2 mg/dL (8.5-10.1); CREATININE - SERUM 1.3 mg/dL (0.6-1.3); POTASSIUM - SERUM 4.1 mmol/L (3.5-5.1); PROTEIN - SERUM 7.8 g/dL (6.4-8.2)
--- NOTE | 2017-04-14 06:25 | NUR ---
PT RESTING COMFORTABLY, NO NEEDS. CONTINUE TO MONITOR CLOSELY.
[2017-04-14 08:00] VITALS: BP 122/77
--- NOTE | 2017-04-14 08:01 | NUR ---
PRE-OPS GIVEN. TO SIZE MIXER BY BED.
--- NOTE | 2017-04-14 09:25 | NUR ---
BACK FROM JOINERY MACHINIST. VS WNL. RIGHT GROIN STABLE WITHOUT BLEEDING OR HEMATOMA NOTED. WILL MONITOR.
[2017-04-14 12:00] VITALS: BP 120/72
[2017-04-14] MEDS ORDERED: LOPRESSOR25 MG PO (12:27)
[2017-04-14] MEDS ORDERED: LIPITOR20 MG PO ×2 (12:30→13:25)
--- NOTE | 2017-04-14 13:12 | NUR ---
BED REST UP. GROIN STABLE.
[2017-04-14] MEDS ORDERED: PLAVIX75 MG PO (13:25)
--- NOTE | 2017-04-14 14:26 | NUR ---
IV AND TELEMETRY DCD. DC PLANS GIVEN. UNDERSTANDING VOICED. ESCORTED TO CAR BY W/C.
--- NOTE | 2017-04-25 08:55 | EC ---
PATIENT:WILMER WEISS DATE OF SERVICE: 04/13/17 SEX: M MEDICAL RECORD: [id number] DATE OF : [birth year] LOCATION:D. D.211 AGE OF PATIENT: 47 ADMISSION DATE: 04/13/17 REFERRING PHYSICIAN: INTERPRETING PHYSICIAN: ARSENIO GEORGE MD ECHOCARDIOGRAM REPORT ECHO CHARGES 4 ECHO COMPLETE CLINICAL DIAGNOSIS: NON Q AR HX OF CAD/STENTS ECHOCARDIOGRAPHIC MEASUREMENTS (adult normal given) AC root (d.<3.7cm) 4.1 cm LV Septum d (<1.2 cm> 1.4 cm Valve Excursion 2.5 cm LV Septum (systole) 1.7 cm Left Atria (s.<4.0cm> 4.0 cm LVPW d(<1.2cm) 1.5 cm RV (d.<2.3cm) 5.3 cm LVPW (sytole) 1.9 cm LV diastole(<5.6CM) 5.0 cm MV E-F(>70mm/sec) cm LV systole 4.0 cm LVOT Diameter 2.2 cm MV exc.(>10mm) 1.5 cm Est.ejection fraction (50-75%) % Pericardial Effusion N DOPPLER: LVIT cm/sec A 86.0 cm/sec E 78.0 cm/sec LA cm/sec RVSP 40 mmHg LVOT 180 cm/sec AOP1/2T 752 m/s Asc. Ao 191 cm/sec RVOT 80 cm/sec RA cm/sec PA 133 cm/sec AV Gradient Peak 14.65mmHg AV Mean 7.46 mmHg AV Area 3.6 cm MV Gradient Peak 11.70mmHg MV Mean 2.48 mmHg MV Area cm COMMENTS: Supervisor Furnace Process: Hernesto DRAKE Brush Maker Machine: Hugo George TAPE# PACS DATE OF SERVICE: 04/13/2017 PROCEDURE: Transthoracic echocardiogram. FINDINGS: 1. Left ventricle has moderate concentric left ventricular hypertrophy with inflow characteristics consistent with diastolic dysfunction. Ejection fraction is 55-60% with no obvious regional wall motion abnormalities. 2. The left atrium is mildly dilated. 3. Aortic valve structure appears to be normal. There is, however, mild aortic ECHOCARDIOGRAM REPORT [id number] WILMER WEISS insufficiency. 4. The mitral valve has mild mitral regurgitation. 5. The tricuspid valve has mild tricuspid regurgitation. 6. The pulmonic valve is normal. 7. The right atrium is markedly dilated. 8. The right ventricle is moderately dilated with normal function. 9. The inferior vena cava was not well demonstrated on this study. CONCLUSIONS: The patient's imaging was difficult to visualize endocardial structures precisely; however, with that being said, the patient appears to have nhbo-qg-slekbuul hypertensive heart disease with xlxy-xh-xvtxtonp aortic insufficiency and mild elevations of pulmonic pressure and a mild dilatation of right-sided structures. TRANSINT:[id number] Voice Confirmation ID: [id number] DOCUMENT ID: [id number] 04/24/2017 Edited to correct date of service, dmm. ARSENIO GEORGE MD at 0855 CC: [id number] DICTATION DATE: 04/14/17 0718 CARBON PAPER MACHINE OPERATOR: 04/14/17 1137 DIS IN 04/14/17 [place] [address] [place] [address]
== END 2017-04-14 14:46 | disposition home or self-care (01) ==
LOC: D.ER 05:46 → D.M2 07:02 → OBSVTIME 07:02 → D.M2 07:02
PROVIDERS: Family Medicine; ADMIT Family Medicine
DX: I21.4 Non-ST elevation (NSTEMI) myocardial infarction (principal); I25.10 Atherosclerotic heart disease of native coronary artery without angina pectoris; T82.855A Stenosis of coronary artery stent, initial encounter; Y83.8 Other surgical procedures as the cause of abnormal reaction of the patient, or of later complication, without mention of misadventure at the time of the procedure; I10 Essential (primary) hypertension; E78.5 Hyperlipidemia, unspecified; F41.9 Anxiety disorder, unspecified

== ENCOUNTER 2017-06-19 05:44 | Observation (INO) | payer MEDICAID ==
[~2017-06-19] VITALS: Ht 175.3 cm; Wt 120.5 kg
--- NOTE | ~2017-06-19 | OP ---
PATIENT NAME: WILMER WEISS MEDICAL RECORD: [id number] :66 LOCATION:D.M2 D.2115 ADMISSION DATE:06/19/17 SURGEON: JEAN-PAUL JOSEPH MD DATE OF OPERATION: 06/19/2017 PROCEDURE: Left heart catheterization, selective coronary angiography, right femoral artery approach. CATHETERS: A 5-Danish sheath, 5/4 left and right Magda, 5/4 pig. The procedure was well tolerated. We proceeded to PTCA stenting of the diagonal after procedure finished. FINDINGS: Left ventriculography in 30-degree ASIF view: Normal wall motion, normal systolic function. CORONARY ANATOMY. LEFT MAIN: Left main is free of disease. LAD: LAD in the area of previous stenting is widely patent. There is basically subtotaled diagonal branch, obviously culprit artery. This appears to be between the 2 previously placed stents. CIRCUMFLEX: Circumflex is free of disease. RIGHT CORONARY ARTERY: Rudimentary, free of disease. 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 PLAN: For intervention momentarily. DESCRIPTION OF PROCEDURE: A 5-Danish sheath exchanged for 6-Danish sheath. A XB LAD 4 guiding catheter provided good guide catheter support. We were able to place the Whisper wire to both stents and followed pre-deployment of 2.5 x 12 mm [place] balloon. Stent deployed was a 2.5 x 8 mm [place] drug-eluting stent up to 14 atmospheres with excellent resolution of 90% plus stenosis, no significant residual. ROSITA flow was 3 throughout the procedure. The patient was previously on Plavix. Heparin was given in the lab. Sheath closed with ExoSeal device. TRANSINT:[id number] Voice Confirmation ID: [id number] DOCUMENT ID: [id number] JEAN-PAUL JOSEPH MD CC: [id number] DICTATION DATE: 06/19/17 0959 INKER AND OPAQUER: 06/19/17 1205 ADM IN [place] [id number] [place] [address]
--- NOTE | ~2017-06-19 | HEMODYNAMI ---
PATIENT:WILMER WEISS MEDICAL RECORD: [id number] : 66 [id number] ADMISSION DATE: 06/19/17 Generatedon:06/19/20179:55 Patient name: WILMER WEISS Patient #: [id number] SSN: D OB: 1970 Date of study: 06/19/2017 Page: Of Hemodynamic Procedure Report Patient Data Patient Demographics Procedure consent was obtained First Name: WILMER Gender: Male Last Name: ISELA : 1970 Middle Initial: W Age: 47 year(s) Patient #: [id number] Race: Additional ID: [id number] Contact details Address: [address] [place] [address] State: [place] City: [place] Zip code: [address] Past Medical History Allergies: No known allergies Admission Admission Data Admission Date: 06/19/2017 Admission Time: 7:11 Room #: 2115 Lab Results Lab Result Date: 06/19/2017 Lab Result Time: 0:00 Biochemistry Name Units Result Min Max BUN mg/dl 23 --(----)-* 7 18 Creatinine mg/dl 1 --(--*-)-- 0.6 1.3 CBC Name Units Result Min Max Hemoglobin g/dl 13.1 -*(----)-- 13.5 17.5 Procedure Procedure Types Cath Procedure Diagnostic Procedure [facility] w/Coronaries PCI Procedure Coronary Stent Coronary Stent Initial Miscellaneous Procedures Moderate Sedation up to 15 minutes Procedure Description Procedure Date Procedure Date: 06/19/2017 Procedure Start Time: 9:28 Procedure End Time: 9:51 Procedure Staff Name Function Mike Mcnair MD Performing Physician Gibran Freedman RT Monitor Hina Henderson RT Scrub Ashvin Grissom RN Physical Medicine Teacher Jane Casarez RN Nurse Procedure Data Cath Procedure Fluoroscopy Diagnostic fluoroscopy Total fluoroscopy Time: 5.9 time: 5.9 min min Diagnostic fluoroscopy Total fluoroscopy dose: dose: 1163 mGy 1163 mGy Contrast Material Contrast Material Type Amount (ml) Isovue 300 125 Entry Location Entry Primary Successful Side Size Upsize Upsize Entry Closure Succes sful Closure Location (Fr) 1 (Fr) 2 (Fr) Remarks Device Remarks Femoral Right 5 Fr 6 Fr Exoseal artery Short Estimated blood loss: 10 ml Diagnostic catheters Device Type Used For End Catheter Placement MULTIPACK JL 4.0 5Fr Procedure catheter MULTIPACK 3DRC 5Fr Procedure catheter MULTIPACK Pigtail 5 Fr Procedure catheter Procedure Complications No complications Procedure Medications Medication Administration Route Dosage Oxygen NC 2 l/min Lidocaine 2% added to field 20 Heparin Flush Bag added to field 2 bags (1000units/500ml NS) 0.9% NaCl I.V. 100 ml/hr Versed I.V. 1 mg Fentanyl I.V. 50 mcg Versed I.V. 1 mg Heparin Bolus I.V. 5000 units Versed I.V. 1 mg Fentanyl I.V. 50 mcg Versed I.V. 1 mg Fentanyl I.V. 50 mcg Plavix P.O. 75 mg Hemodynamics Rest HGB: 13.1 (g/dl) Heart Rate: 58 (bpm) Pressure Samples Time Site Value (mmHg) Purpose Heart Use Rate(bpm) 9:33 LV 132/24,33 Snapshot 65 9:34 AO 122/84(102) Pullback 59 9:34 LV 114/15,18 Pullback 59 Gradients Valve Time Site 1 Site 2 Mean SEP/DFP Peak To Heart Use (mmHg) (sec/min) Peak Rate (mmHg) (bpm) Aortic 9:34 LV AO 0 59 114/15,18 122/84(102) Calculations Valve P-P Mean Valve Index Valve Source Name Gradient Area Flow (cm2) Aortic 0 0 Snapshots Pre Cath Intra NCS Post Cath Vital Signs Time Heart Resp SPO2 etCO2 NIBP (mmHg) Rhythm Pain Sedation Rate (ipm) (%) (mmHg) Status Level (bpm) 9:13:42 58 18 99 37 142/78(107) NSR 0 (11) 10(A) , No pain 9:18:35 55 23 99 36.2 141/73(96) NSR 0 (11) 10(A) , No pain 9:23:24 57 25 98 37.7 132/74(95) NSR 0 (11) 10(A) , No pain 9:28:14 59 16 96 47.5 130/77(104) NSR 0 (11) 10(A) , No pain 9:33:03 65 14 96 53.6 141/84(108) NSR 0 (11) 9(A) , No pain 9:37:54 65 15 97 52 150/91(119) NSR 0 (11) 9(A) , No pain 9:42:47 69 16 97 49 149/82(119) NSR 0 (11) 9(A) , No pain 9:47:36 67 16 97 46.8 136/83(111) NSR 0 (11) 10(A) , No pain Medications Time Medication Route Dose Verified Delivered Reason Notes Effectiveness by by 9:20:31 Oxygen NC 2 Mike Buffie used for l/min [facility]. Bertin Casarez RN procedure 9:20:39 Lidocaine 2% added 20ml Mike Mike for local to vial [facility] anesthetic field MD [place] 9:20:44 Heparin Flush added 2 Mike Mike used for Bag to bags [facility] procedure (1000units/500ml field MD [place] NS) 9:20:52 0.9% NaCl I.V. 100 Mike Buffie Per physician ml/hr St. Bertin Casarez RN, MD 9:25:41 Versed I.V. 1 mg Mike Buffie for sedation [facility]. Bertin Casarez RN, MD 9:25:46 Fentanyl I.V. 50 Mike Buffie for sedation mcg St[facility] Bertin Casarez RN, MD 9:29:44 Versed I.V. 1 mg Mike Buffie for sedation St. Bertin Casarez RN, MD 9:32:45 Versed I.V. 1 mg Mike Buffie for sedation St. Bertin Casarez RN, MD 9:32:49 Fentanyl I.V. 50 Mike Buffie for sedation mcg St. Bertin Casarez RN, MD 9:35:39 Heparin Bolus I.V. 5000 Mike Buffie for verifie d units St. Bertin Casarez RN anticoagulation with dr MD minaya 9:45:31 Versed I.V. 1 mg Mike Buffie for sedation St. Bertin Casarez RN, MD 9:45:35 Fentanyl I.V. 50 Mike Buffie for sedation mcg St. Bertin Casarez RN, MD 9:52:04 Plavix P.O. 75 mg Mike Buffie for Xu Casarez RN antiplatelet MD therapy Procedure Log Time Note 8:44:25 Time tracking: Regular hours 8:44:28 Plan of Care:Hemodynamics will remain stable., Cardiac rhythm will remain stable., Comfort level will be maintained., Respiratory function will remain adequate., Patient/ family verbilizes understanding of procedure., Procedure tolerated without complication., Recovers from procedure without complications.. 8:44:30 Signed procedure consent form obtained from patient. 8:44:55 Lab Result : BUN 23 mg/dl 8:44:55 Lab Result : Hemoglobin 13.1 g/dl 8:44:55 Lab Result : Creatinine 1 mg/dl 8:56:04 Ashvin Grissom RN sent for patient. Start room use. 9:07:09 Patient received from Pre/Post Procedure Room to CCL 1 Alert and oriented. Tansferred to table in Supine position. 9:07:10 Warm blankets applied, and otilio hugger turned on for patient comfort. 9:07:10 Correct patient and procedure confirmed by team. 9:07:14 ECG and BP/O2 sat monitors applied to patient. 9:11:35 H&P Date Dictated: 06/19/2017 Within 30 days and on chart.. 9:11:37 Pre-procedure instructions explained to patient. 9:11:37 Pre-op teaching completed and patient verbalized understanding. 9:11:38 Family in patients room. 9:11:39 Patient NPO since Midnight. 9:11:45 Patient allergic to No known allergies 9:11:47 Is the patient allergic to Iodine/contrast media? No. 9:11:48 Is patient on blood thinner?Yes 9:11:50 ACC The patient was administered the following blood thiners within the last 24 hours: ACCPlavix 9:11:51 Patient diabetic? No. 9:11:55 Previous problem with sedation/anesthesia? No ? 9:11:56 Snore? Yes 9:11:57 Sleep apnea? No 9:11:58 Deviated septum? No 9:11:58 Opens mouth fully? Yes 9:11:59 Sticks out tongue? Yes 9:12:00 Airway obstruction? No ? 9:12:01 Dentures? No ? 9:12:04 Pre procedure: right dorsailis pedis pulse 2+ Normal; easily identifiable; not easily obliterated 9:12:06 Patient pain scale 0/10 ?. 9:12:12 IV patent on arrival in left hand with 0.9% NaCl at O. 9:12:15 Lab results completed and on chart. 9:12:17 Right groin area was prepped with chlora-prep and draped in sterile fashion 9:12:20 Use device set Femoral Dx 9:12:23 Tegaderm 4 x 4 ([id number]) opened to sterile field. 9:12:23 PERCUTANEOUS ENTRY 19GA needle opened to sterile field. 9:12:24 ACIST Manifold (32010) opened to sterile field. 9:12:25 ACIST Hand Control (55313) opened to sterile field. 9:12:27 Medline Cath Pack ([id number]) opened to sterile field. 9:12:28 Bag Decanter (2002S) opened to sterile field. 9:12:28 ACIST Syringe (91644) opened to sterile field. 9:12:30 SHEATH 5FR [place] (MRT898) opened to sterile field. 9:12:30 DIAGNOSTIC WIRE .035 260cm J wire (604550) opened to sterile field. 9:12:31 DIAGNOSTIC Multipack 5Fr catheter set (LU0152) opened to sterile field. 9:12:37 Vital chart was started 9:12:38 Baseline sample Acquired. 9:12:40 Rhythm: sinus rhythm 9:12:42 Full Disclosure recording started 9:12:45 Alarms reviewed by R. N. 9:12:45 Sharps counted by scrub and verified by R.N. 9:20:31 Oxygen 2 l/min NC was administered by Jane Casarez RN; used for procedure; 9:20:39 Lidocaine 2% 20ml vial added to field was administered by Mike Mcnair MD; for local anesthetic; 9:20:44 Heparin Flush Bag (1000units/500ml NS) 2 bags added to field was administered by Mike Mcnair MD; used for procedure; 9:20:47 Zero performed for pressure channel P1 9:20:52 0.9% NaCl 100 ml/hr I.V. was administered by Jane Casarez RN; Per physician; 9:24:58 Physician arrived 9:24:59 --------ALL STOP TIME OUT------ 9:25:00 Final Timeout: patient, procedure, and site verified with staff and physician. All members of the team are in agreement. 9:25:02 Right groin site verified by team. 9:25:04 Physical assessment completed. ASA score P 2 - A patient with mild systemic disease as per Mike Mcnair MD. 9:25:07 Sedation plan: IV Moderate Sedation Medication:Versed, Fentanyl 9::41 Versed 1 mg I.V. was administered by Jane Casarez RN; for sedation; 9::46 Fentanyl 50 mcg I.V. was administered by Jane Casarez RN; for sedation; 9:28:18 Procedure started. 9:28:20 Local anesthetic to right femoral artery with Lidocaine 2% by Mike Mcnair MD.INITIAL ACCESS ONLY 9:28:55 A 5 Fr sheath was inserted into the Right Femoral artery 9:29:44 Versed 1 mg I.V. was administered by Jane Casarez RN; for sedation; 9:30:08 A MULTIPACK JL 4.0 5Fr catheter was advanced over the wire and used for Procedure. 9:30:52 LCA angiography performed. 9:31:39 Catheter exchanged over wire. 9:31:47 A MULTIPACK 3DRC 5Fr catheter was advanced over the wire and used for Procedure. 9:32:33 RCA angiography performed. 9:32:45 Versed 1 mg I.V. was administered by Jane Casarez RN; for sedation; 9:32:49 Fentanyl 50 mcg I.V. was administered by Jane Casarez RN; for sedation; 9:33:08 Catheter removed. 9:33:12 A MULTIPACK Pigtail 5 Fr catheter was advanced over the wire and used for Procedure. 9:33:37 WHISPER 300cm guide wire ([id number]) opened to sterile field. 9:33:38 GUIDE 6FR XBLAD 3.5 catheter ([id number]) opened to sterile field. 9:33:38 INFLATOR Merit BasixCompak (IW5889) opened to sterile field. 9:33:39 SHEATH 6FR [place] (ZJS064) opened to sterile field. 9:34:03 LV hemodynamics recorded. 9:34:07 Injector settings: Ml/sec: 10, Volume: 20, 9:34:09 LV gram done using ASIF 9:34:23 EF : 55 % 9:34:37 Catheter removed. 9:34:44 Sheath upsized to a 6 Fr Short. 9:34:56 6 Fr xblad 3.5 guide catheter was inserted over the wire 9:35:39 Heparin Bolus 5000 units I.V. was administered by Jane Casarez RN; for anticoagulation; verified with dr minaya 9:36:42 Guide Catheter removed. unable to cannulate vessel. 9:36:47 GUIDE 6FR XBLAD 4.0 catheter ([id number]) opened to sterile field. 9:36:55 6 Fr xblad 4 guide catheter was inserted over the wire 9:37:08 whisper wire advanced. 9:39:07 Wire advanced across lesion. 9:41:59 Inflation number: 1 A MAVERICK 2.5 X 12 balloon ([id number]) was prepped and advanced across the 1st Diag, then inflated to 8 ISMAEL for 0:11 (min:sec). 9:42:16 Inflation number: 2 The MAVERICK 2.5 X 12 balloon ([id number]) was reinflated across the 1st Diag, to 10 ISMAEL for 0:15 (min:sec). 9:42:59 Balloon removed over the wire. 9:45:31 Versed 1 mg I.V. was administered by Jane Casarez RN; for sedation; 9:45:32 Inflation Number: 3 A IBAN OTW 2.5 x 08 stent ([id number]) was prepped and advanced across the 1st Diag. The stent was deployed at 12 ISMAEL for 0:06 (min:sec). 9:45:35 Fentanyl 50 mcg I.V. was administered by Jane Casarez RN; for sedation; 9:45:59 Inflation number: 4 The stent balloon was then re-inflated across the 1st Diag to 14 ISMAEL for 0:15 (min:sec). 9:46:30 Stent catheter was removed intact over wire. 9:46:30 Wire removed. 9:46:31 Guide catheter removed. 9:46:49 EXOSEAL 6Fr (EX600) opened to sterile field. 9:47:09 Sheath removed intact; hemostasis achieved with Exoseal to the Right Femoral artery. 9:47:11 Procedure ended.(Physican Out) 9:49:04 Fluoroscopy time 05.90 minutes. 9:49:07 Fluoroscopy dose: 1163 mGy 9:49:07 Flurop Dose total: 1163 9:49:11 Contrast amount:Isovue 300 125ml. 9:49:12 Sharps counted by scrub and verified by R.N. 9:49:13 Insertion/operative site no bleeding no hematoma. 9:49:17 Post-op/insertion site Right Femoral artery dressed using a 4 x 4 and Tegaderm. 9:49:20 Post right femoral artery:stable, soft, clean and dry 9:49:22 Post Procedure Pulses reassessed and unchanged 9:49:24 Post-procedure physical assessment completed. ASA score P 2 - A patient with mild systemic disease as per Mike Mcnair MD. 9:49:26 Post procedure rhythm: unchanged. 9:49:28 Estimated blood loss: 10 ml 9:49:29 Post procedure instruction explained to patient.Patient verbalizes understanding. 9:49:31 Patient needs reinforcement of post procedure teaching. 9:50:07 Procedure type changed to Cath procedure, Diagnostic procedure, LHC, LHC w/Coronaries, PCI procedure, Coronary Stent, Coronary Stent Initial, Miscellaneous Procedures, Moderate Sedation up to 15 minutes 9:51:25 Procedure and supply charges have been captured, reviewed, submitted and are correct. 9:51:27 Procedure Complication : No complications 9:51:29 Vital chart was stopped 9:51:31 See physician's report for complete and final results. 9:51:33 Report given to PCU. 9:51:44 Patient transfered to PCU with Stretcher. 9:51:46 Procedure ended. 9:51:46 Full Disclosure recording stopped 9:51:51 End room use (Document Last) 9:52:04 Plavix 75 mg P.O. was administered by Jane Casarez RN; for antiplatelet therapy; Intervention Summary Intervention Notes Time ActionType Lesion and Equipment Action# Pressure Duration Attributes Used 9:41:59 Inflate 1st Diag MAVERICK 2.5 1 8 00:11 balloon X 12 balloon ([id number]) 9:42:16 Reinflate 1st Diag MAVERICK 2.5 2 10 00:15 balloon X 12 balloon ([id number]) 9:45:32 Place stent 1st Diag IBAN OTW 2.5 3 12 00:06 x 08 stent ([id number]) 9:45:59 Reinflate 1st Diag IBAN OTW 2.5 4 14 00:15 stent x 08 stent balloon ([id number]) Device Usage Item Name Manufacture Quantity Catalog Number [facility] Lot# / Charge Number Stock Stock Serial# Code Tegaderm 4 x 3M 1 1626W [id number] [id number] 5 4 (1626W) PERCUTANEOUS Cook Medical 1 [id number] 805526 442305 5 ENTRY 19GA needle ACIST Acist 1 15432 760627 640410 487510 5 Manifold Medical (69463) Systems Inc ACIST Hand Acist 1 20474 738862 419461 101887 5 Control Medical (64278) Systems Inc Medline Cath Cardinal 1 [id number] 321490 19234 064193 5 Pack shopatplaces ([id number]) Bag Decanter Microtek 1 2001S 143981 01897 114181 5 (2001S) Medical Inc. ACIST Syringe Acist 1 41351 261375 430860 057202 20 (12565) Medical Systems Inc SHEATH 5FR Terumo 1 CON415 091998 769573 854704 40 [place] (KYW678) DIAGNOSTIC St Isac 1 698209 542458 387741 350930 30 WIRE .035 260cm J wire (468641) DIAGNOSTIC Cardinal 1 UM5000 992266 92957 889707 30 Multipack 5Fr Health catheter set (BA0482) MULTIPACK JL Cardinal 1 476677 5 4.0 5Fr Health catheter MULTIPACK Cardinal 1 506765 5 3DRC 5Fr Health catheter MULTIPACK Cardinal 1 467190 5 Pigtail 5 Fr Health catheter WHISPER 300cm Duenas 1 [id number] 045441 609911 604641 5 guide wire Vascular ([id number]) GUIDE 6FR Cardinal 1 97865327 150194 421507 176329 10 XBLAD 3.5 Health catheter (84678663) INFLATOR Merit 1 FS5079 780757 825342 709657 15 Ecofoot Medical BasixCompak (CR7410) SHEATH 6FR Terumo 1 GFU849 639907 413960 828690 40 [place] (DJV710) GUIDE 6FR Cardinal 1 [id number] 972021 902901 648268 3 XBLAD 4.0 Health catheter (58238446) NATASHA 2.5 [place] 1 [id number] 115223 315789 423952 1 [id number] X 12 balloon Scientific ([id number]) IBAN OTW 2.5 Medtronic 1 [id number] 553864 86662 588007 5 [id number] x 08 stent ([id number]) EXOSEAL 6Fr Cardinal 1 EX600 422709 819113 703294 10 (EX600) Health Signature Audit [place] Stage Time Signature Unsigned Intra-Procedure 06/19/2017 Gibran Freedman 9:55:42 AM RT(R) Signatures Monitor : Gibran Freedman RT Signature : Date : Time : [id number] [place] [address]
[~2017-06-19 05:44] MED LIST changes: +LIPITOR20 MG PO; +LOPRESSOR25 MG PO
[2017-06-19 06:10] LABS: BASOPHILS 0.1 % (0-2); EOSINOPHILS 1.7 % (0-7); HEMATOCRIT 37.8 % (42.0-54.0); HEMOGLOBIN 13.1 g/dL (13.5-17.5); IMMATURE GRANULOCYTES 0.3 % (0-5); LYMPHOCYTES 19.5 % (15-50); MCH 31.6 pg (26.0-34.0); MCHC 34.7 g/dL (31.0-37.0); MCV 91.1 fL (80.0-100.0); MONOCYTES 11.6 % (2-11); NEUTROPHILS 66.8 % (40-80); PLATELET COUNT 215 10x3/uL (130-400); RBC 4.15 10x6/uL (4.20-6.10); RDW 12.4 % (11.5-14.5); WBC 7.7 10x3/uL (4.8-10.8)
[2017-06-19 06:27] LABS: ALBUMIN 3.8 g/dL (3.4-5.0); ALKALINE PHOSPHATASE 113 U/L (46-116); ALT (SGPT) 36 U/L (10-68); CALC OSMOLALITY 284 mosm/kg (275-300); CALCIUM 8.6 mg/dL (8.5-10.1); CARBON DIOXIDE 25.5 mmol/L (21.0-32.0); CHLORIDE - SERUM 105 mmol/L (98-107); GLUCOSE 128 mg/dL (74-106); POTASSIUM - SERUM 4.4 mmol/L (3.5-5.1); PROTEIN - SERUM 7.4 g/dL (6.4-8.2); SODIUM 140 mmol/L (136-145); UREA NITROGEN 23 mg/dL (7-18); eGFR NON AFRICAN AMERICAN 84 mL/min (90-120)
[2017-06-19 06:37] LABS: CHOL - HDL RATIO 4.3 ratio (2.3-4.9); CHOLESTEROL, TOTAL 132 mg/dL (0-200); CKMB 0.9 U/L (0.0-3.6); CREATINE KINASE 326 UL (21-232); HDL CHOLESTEROL 31 mg/dL (32-96); LDL CHOLESTEROL 64 mg/dL (0-100); LDL-HDL RATIO 2.1 ratio (1.5-3.5); TRIGLYCERIDE 189 mg/dL (30-200); TROPONIN-I < 0.017 ng/mL (0.000-0.060)
[2017-06-19 07:07] LABS: MAGNESIUM - SERUM 2.4 mg/dL (1.8-2.4)
[2017-06-19 08:04] VITALS: BP 110/62; BMI 39.2
[2017-06-19 08:43] VITALS: Ht 175.3 cm; Wt 120.5 kg
[2017-06-19 08:57] VITALS: BP 136/70
[2017-06-19 12:14] VITALS: BP 104/69
== END 2017-06-19 14:43 | disposition home or self-care (01) ==
LOC: D.ER 05:44 → OBSVTIME 07:11 → D.M2 07:11
PROVIDERS: Emergency Medicine
DX: I25.110 Atherosclerotic heart disease of native coronary artery with unstable angina pectoris (principal); Z95.5 Presence of coronary angioplasty implant and graft; I10 Essential (primary) hypertension; E78.5 Hyperlipidemia, unspecified

== ENCOUNTER 2017-08-03 09:01 | Emergency (ER) | payer MEDICAID ==
[2017-06-19 08:43] VITALS: BMI 39.2
[2017-08-03 09:30] LABS: BASOPHILS 0.2 % (0-2); EOSINOPHILS 1.8 % (0-7); HEMATOCRIT 40.7 % (42.0-54.0); HEMOGLOBIN 14.1 g/dL (13.5-17.5); IMMATURE GRANULOCYTES 0.3 % (0-5); LYMPHOCYTES 12.3 % (15-50); MCH 31.3 pg (26.0-34.0); MCHC 34.6 g/dL (31.0-37.0); MCV 90.2 fL (80.0-100.0); MONOCYTES 8.1 % (2-11); NEUTROPHILS 77.3 % (40-80); PLATELET COUNT 210 10x3/uL (130-400); RBC 4.51 10x6/uL (4.20-6.10); RDW 12.7 % (11.5-14.5); WBC 11.2 10x3/uL (4.8-10.8)
[2017-08-03 09:43] LABS: APTT 25.7 SECONDS (22.8-39.4); INR 0.98 (0.85-1.17); PROTIME 12.6 SECONDS (11.6-15.0)
[2017-08-03 09:44] LABS: D-DIMER-QUANTITATIVE < 0.27 ug/mLFEU (0.20-0.54)
[2017-08-03 09:51] LABS: ALKALINE PHOSPHATASE 124 U/L (46-116); ALT (SGPT) 47 U/L (10-68); BILIRUBIN - TOTAL 0.36 mg/dL (0.2-1.3); CALC OSMOLALITY 282 mosm/kg (275-300); CALCIUM 9.3 mg/dL (8.5-10.1); CARBON DIOXIDE 26.3 mmol/L (21.0-32.0); CHLORIDE - SERUM 104 mmol/L (98-107); CREATININE - SERUM 1.2 mg/dL (0.6-1.3); GLUCOSE 107 mg/dL (74-106); POTASSIUM - SERUM 4.1 mmol/L (3.5-5.1); PROTEIN - SERUM 8.2 g/dL (6.4-8.2); SODIUM 139 mmol/L (136-145); UREA NITROGEN 26 mg/dL (7-18); eGFR NON AFRICAN AMERICAN 69 mL/min (90-120)
[2017-08-03 10:10] LABS: CREATINE KINASE 234 UL (21-232); PRO BNP 60 pg/mL (0-125); TROPONIN-I < 0.017 ng/mL (0.000-0.060)
== END 2017-08-03 14:25 | disposition home or self-care (01) ==
LOC: EDBD 09:01 → D.ER 09:01
PROVIDERS: Family Medicine
DX: R07.9 Chest pain, unspecified (principal); B34.9 Viral infection, unspecified; K21.9 Gastro-esophageal reflux disease without esophagitis; R00.1 Bradycardia, unspecified

== ENCOUNTER 2017-08-11 07:35 | Outpatient (CLI) | payer MEDICAID ==
[~2017-08-11] VITALS: Ht 172.7 cm; Wt 120.5 kg
--- NOTE | ~2017-08-11 | HEMODYNAMI ---
PATIENT:WILMER WEISS MEDICAL RECORD: [id number] : 66 LOCATION:[facility] ADMISSION DATE: 08/11/17 Generatedon:08/11/20179:50 Patient name: WILMER WEISS Patient #: [id number] SSN: D OB: 1970 Date of study: 08/11/2017 Page: Of Hemodynamic Procedure Report Patient Data Patient Demographics Procedure consent was obtained First Name: WILMER Gender: Male Last Name: ISELA : 1970 Middle Initial: W Age: 47 year(s) Patient #: [id number] Race: Additional ID: [id number] Contact details Address: [address] [place] [address] State: [place] City: [place] Zip code: [address] Past Medical History Allergies: No known allergies Admission Admission Data Admission Date: 08/11/2017 Admission Time: 7:35 Lab Results Lab Result Date: 08/11/2017 Lab Result Time: 0:00 Biochemistry Name Units Result Min Max BUN mg/dl 24 --(----)-* 7 18 Creatinine mg/dl 1.1 --(--*-)-- 0.6 1.3 CBC Name Units Result Min Max Hematocrit % 40.4 -*(----)-- 42 54 Hemoglobin g/dl 13.9 --(*---)-- 13.5 17.5 Procedure Procedure Types Cath Procedure Diagnostic Procedure [facility] w/Coron[facility] Procedure Description Procedure Date Procedure Date: 08/11/2017 Procedure Start Time: 9:38 Procedure End Time: 9:46 Procedure Staff Name Function Eyad Martínez MD Performing Physician Ashvin Grissom RN Nurse Fatmata Crabtree RT Monitor Paco Mata RT Scrub Procedure Data Cath Procedure Fluoroscopy Diagnostic fluoroscopy Total fluoroscopy Time: 1.6 time: 1.6 min min Diagnostic fluoroscopy Total fluoroscopy dose: 288 dose: 288 mGy mGy Contrast Material Contrast Material Type Amount (ml) Isovue 300 59 Entry Location Entry Primary Successful Side Size Upsize Upsize Entry Closure Succes sful Closure Location (Fr) 1 (Fr) 2 (Fr) Remarks Device Remarks Femoral Right 5 Fr Exoseal artery Estimated blood loss: 10 ml Diagnostic catheters Device Type Used For End Catheter Placement MULTIPACK Pigtail 5 Fr Procedure catheter MULTIPACK JL 4.0 5Fr Procedure catheter MULTIPACK 3DRC 5Fr Procedure catheter Procedure Complications No complications Procedure Medications Medication Administration Route Dosage Oxygen etCO2 Nasal cannula 2 l/min Heparin Flush Bag added to field 2 bags (1000units/500ml NS) 0.9% NaCl I.V. 100 ml/hr Fentanyl I.V. 50 mcg Versed I.V. 1 mg Fentanyl I.V. 50 mcg Versed I.V. 1 mg Fentanyl I.V. 50 mcg Versed I.V. 1 mg Fentanyl I.V. 50 mcg Versed I.V. 1 mg Hemodynamics Rest HGB: 13.9 (g/dl) Heart Rate: 62 (bpm) Snapshots Pre Cath Intra NCS Post Cath Vital Signs Time Heart Resp SPO2 etCO2 NIBP (mmHg) Rhythm Pain Sedation Rate (ipm) (%) (mmHg) Status Level (bpm) 9:13:39 60 16 96 0 138/82(93) NSR 0 (11) 10(A) , No pain 9:18:05 60 19 94 0 140/83(100) NSR 0 (11) 10(A) , No pain 9:22:32 59 18 94 0 136/73(101) NSR 0 (11) 10(A) , No pain 9:26:56 60 17 93 0 134/81(99) NSR 0 (11) 10(A) , No pain 9:31:22 60 16 94 37.1 135/78(105) NSR 0 (11) 10(A) , No pain 9:35:50 56 18 94 36.3 132/75(93) NSR 0 (11) 9(A) , No pain 9:40:15 58 16 94 40.1 135/82(95) NSR 0 (11) 9(A) , No pain 9:44:41 63 16 94 40.8 139/84(107) NSR 0 (11) 9(A) , No pain Medications Time Medication Route Dose Verified Delivered Reason Notes Effec tiveness by by 9:13:38 Oxygen etCO2 2 Eyad Allen Nasal l/min Mauricio Grissom RN physician cannula 9:13:47 Heparin Flush added 2 Eyad Lock used for Bag to bags Mauricio Grissom RN procedure (1000units/500ml field NS) 9:13:58 0.9% NaCl I.V. 100 Eyad Lock Per ml/hr Mauricio Grissom RN physician 9:34:37 Fentanyl I.V. 50 Eyad Bhaktay for trisha Grissom RN sedation 9:34:44 Versed I.V. 1 mg Eyad Lock for Mauricio Grissom RN sedation 9:35:59 Fentanyl I.V. 50 Eyad Ashvin for trisha Grissom RN sedation 9:36:03 Versed I.V. 1 mg Eyad Bhaktay for Mauricio Grissom RN sedation 9:38:50 Fentanyl I.V. 50 Eyad Bhaktay for trisha Grissom RN sedation 9:41:07 Versed I.V. 1 mg Eyad Lock for Mauricio Grissom RN sedation 9:42:17 Fentanyl I.V. 50 Eyad Bhaktay for trisha Grissom RN sedation 9:43:20 Versed I.V. 1 mg Eyad Bhaktay for Mauricio Grissom RN sedation Procedure Log Time Note 8:51:17 Informed consent obtained and on chart 8:51:28 Diagnostic Cath Status : Elective 9:00:37 Paco Mata RT(R) (CV) sent for patient. Start room use. 9:11:39 Time tracking: Regular hours 9:11:44 Plan of Care:Hemodynamics will remain stable., Cardiac rhythm will remain stable., Comfort level will be maintained., Respiratory function will remain adequate., Patient/ family verbilizes understanding of procedure., Procedure tolerated without complication., Recovers from procedure without complications.. 9:11:55 Patient received from Pre/Post Procedure Room to CCL 3 Alert and oriented. Tansferred to table in Supine position. 9:11:57 Warm blankets applied, and otilio hugger turned on for patient comfort. 9:11:58 Correct patient and procedure confirmed by team. 9:12:01 ECG and BP/O2 sat monitors applied to patient. 9:12:18 Vital chart was started 9:12:22 Baseline sample Acquired. 9:12:27 Rhythm: sinus rhythm 9:12:28 Full Disclosure recording started 9:12:43 H&P Date Dictated: 08/08/2017 Within 30 days and on chart., H&P Addendum completed by physician on day of procedure. (MUST COMPLETE FOR ALL OUTPATIENTS). 9:12:44 Pre-procedure instructions explained to patient. 9:12:47 Family in waiting room. 9:12:49 Patient NPO since Midnight. 9:13:02 Patient allergic to No known allergies 9:13:05 Is the patient allergic to Iodine/contrast media? No. 9:13:21 Was the patient premedicated? No 9:13:33 Is patient on blood thinner?Yes 9:13:36 ACC The patient was administered the following blood thiners within the last 24 hours: ACCPlavix 9:13:38 Oxygen 2 l/min etCO2 Nasal cannula was administered by Ashvin Grissom RN; Per physician; 9:13:39 Patient diabetic? No. 9:13:47 Heparin Flush Bag (1000units/500ml NS) 2 bags added to field was administered by Ashvin Grissom RN; used for procedure; 9:13:47 Snore? Yes 9:13:56 Sleep apnea? No 9:13:58 0.9% NaCl 100 ml/hr I.V. was administered by Ashvin Grissom RN; Per physician; 9:13:58 Deviated septum? No 9:14:02 Airway obstruction? No ? 9:14:05 Dentures? No ? 9:14:10 Patient pain scale 0/10 ?. 9:14:18 IV patent on arrival in right forearm with 0.9% NaCl at [facility]. 9:23:00 Lab Result : Creatinine 1.1 mg/dl 9:23:00 Lab Result : BUN 24 mg/dl 9:23:00 Lab Result : Hemoglobin 13.9 g/dl 9:23:00 Lab Result : Hematocrit 40.4 % 9:24:09 Lab results completed and on chart. 9:25:13 Right groin area was prepped with chlora-prep and draped in sterile fashion 9:25:15 Alarms reviewed by R. N. 9:25:15 Sharps counted by scrub and verified by R.N. 9:25:17 Physician paged 9:30:23 Zero performed for pressure channel P1 9:30:54 Baseline sample Acquired. 9:34:19 Physician arrived 9:34:20 --------ALL STOP TIME OUT------ 9:34:21 Final Timeout: patient, procedure, and site verified with staff and physician. All members of the team are in agreement. 9:34:22 Right groin site verified by team. 9:34:29 Physical assessment completed. ASA score P 2 - A patient with mild systemic disease as per Eyad Martínez MD. 9:34:37 Fentanyl 50 mcg I.V. was administered by Ashvin Grissom RN; for sedation; 9:34:37 Sedation plan: IV Moderate Sedation Medication:Versed, Fentanyl 9:34:44 Versed 1 mg I.V. was administered by Ashvin Grissom RN; for sedation; 9:35:59 Fentanyl 50 mcg I.V. was administered by Ashvin Grissom RN; for sedation; 9:36:03 Versed 1 mg I.V. was administered by Ashvin Grissom RN; for sedation; 9:37:57 Use device set Femoral Dx 9:37:59 ACIST Syringe (63578) opened to sterile field. 9:37:59 Bag Decanter (2002S) opened to sterile field. 9:37:59 Medline Cath Pack ([id number]) opened to sterile field. 9:38:00 SHEATH 5FR [place] (MMQ245) opened to sterile field. 9:38:00 DIAGNOSTIC WIRE .035 260cm J wire (368615) opened to sterile field. 9:38:04 ACIST Hand Control (58308) opened to sterile field. 9:38:05 ACIST Manifold (89770) opened to sterile field. 9:38:05 DIAGNOSTIC Multipack 5Fr catheter set ([id number]) opened to sterile field. 9:38:05 Tegaderm 4 x 4 (1626W) opened to sterile field. 9:38:11 Procedure started. 9:38:43 Local anesthetic to right femoral artery with Lidocaine 2% by Eyad Martínez MD.INITIAL ACCESS ONLY 9:38:50 Fentanyl 50 mcg I.V. was administered by Ashvin Grissom RN; for sedation; 9:38:55 A 5 Fr sheath was inserted into the Right Femoral artery 9:40:02 A MULTIPACK Pigtail 5 Fr catheter was advanced over the wire and used for Procedure. 9:40:08 LV gram done using ASIF 9:40:47 EF : 60 % 9:40:51 Catheter removed. 9:41:02 A MULTIPACK JL 4.0 5Fr catheter was advanced over the wire and used for Procedure. 9:41:07 Versed 1 mg I.V. was administered by Ashvin Grissom RN; for sedation; 9:41:08 LCA angiography performed. 9:42:17 Fentanyl 50 mcg I.V. was administered by Ashvin Grissom RN; for sedation; 9:42:33 Catheter removed. 9:42:41 A MULTIPACK 3DRC 5Fr catheter was advanced over the wire and used for Procedure. 9:42:55 RCA angiography performed. 9:43:20 Versed 1 mg I.V. was administered by Ashvin Grissom RN; for sedation; 9:44:11 Catheter removed. 9:44:26 EXOSEAL 5Fr (EX500) opened to sterile field. 9:44:41 Sheath removed intact; hemostasis achieved with Exoseal to the Right Femoral artery. 9:44:45 Procedure ended.(Physican Out) 9:44:58 Fluoroscopy time 01.60 minutes. 9:45:03 Fluoroscopy dose: 288 mGy 9:45:03 Flurop Dose total: 288 9:45:07 Contrast amount:Isovue 300 59ml. 9:45:09 Sharps counted by scrub and verified by R.N. 9:45:10 Insertion/operative site no bleeding no hematoma. 9:45:14 Post-op/insertion site Right Femoral artery dressed using a 4 x 4 and Tegaderm. 9:45:15 Post Procedure Pulses reassessed and unchanged 9:45:19 Post-procedure physical assessment completed. ASA score P 2 - A patient with mild systemic disease as per Eyad Martínez MD. 9:45:22 Post procedure rhythm: unchanged. 9:45:34 Estimated blood loss: 10 ml 9:45:57 Post procedure instruction explained to patient.Patient verbalizes understanding. 9:46:07 Procedure and supply charges have been captured, reviewed, submitted and are correct. 9:46:29 Procedure Complication : No complications 9:46:31 Vital chart was stopped 9:46:33 See physician's report for complete and final results. 9:46:35 Report given to Pre/Post Procedure Room. 9:46:38 Patient transfered to Pre/Post Procedure Room with Stretcher. 9:46:41 Procedure ended. 9:46:41 Full Disclosure recording stopped 9:46:44 End room use (Document Last) Device Usage Item Name Manufacture Quantity Catalog Hospital Part Current Minimal L ot# / Number Charge Number Stock Stock Serial# Code ACIST Acist 1 75477 286436 045506 368981 20 Syringe Medical (71832) Systems Inc Bag Microtek 1 2001S 389820 34248 784701 5 Decanter Medical Inc. () Medline Cardinal 1 [id number] 335331 88272 960090 5 Cath Pack Health ([id number]) SHEATH 5FR Terumo 1 PLK476 595304 633839 090495 40 [place] (XYX891) DIAGNOSTIC St Isac 1 510171 167552 651824 661228 30 WIRE .035 260cm J wire (859038) ACIST Hand Acist 1 70822 590475 957585 845376 5 Control Medical (50428) Systems Inc ACIST Acist 1 00958 144749 686372 560145 5 Manifold Medical (38616) Systems Inc DIAGNOSTIC Cardinal 1 [id number] 397917 53881 360053 30 Multipack Health 5Fr catheter set (SG4923) Tegaderm 4 3M 1 1626W 545969 878887 629500 5 x 4 (1626W) MULTIPACK Cardinal 1 548526 5 Pigtail 5 Health Fr catheter MULTIPACK Cardinal 1 830541 5 JL 4.0 5Fr Health catheter MULTIPACK Cardinal 1 135283 5 3DRC 5Fr Health catheter EXOSEAL 5Fr Cardinal 1 EX500 447740 759270 514399 10 (EX500) Health Signature Audit Diablo Stage Time Signature Unsigned Intra-Procedure 08/11/2017 Fatmata Crabtree 9:50:25 AM RT(R) Signatures Monitor : Fatmata Crabtree Signature : RT Date : Time : [id number] [place] [address]
--- NOTE | ~2017-08-11 | OP ---
PATIENT NAME: WILMER WEISS MEDICAL RECORD: [id number] :66 LOCATION:[facility] ADMISSION DATE: SURGEON: MANNIE CANO MD DATE OF OPERATION: 08/11/2017 PROCEDURES: 1. Left heart catheterization. 2. Selective coronary angiography. 3. Left ventriculogram. INDICATION: Angina and coronary artery disease. PROCEDURE IN DETAIL: After informed consent was obtained and after detailed explanation of risks, benefits as well as alternative therapies, the patient elected to proceed with angiogram. The right femoral area was prepped and draped in normal sterile fashion. The right femoral artery was cannulated via modified Seldinger technique with placement of 5-Macedonian sheath. All catheters exchanged through this sheath. FINDINGS: The left ventriculogram was performed in standard 30-degree ASIF view, reveals good cardiac wall motion throughout all segments. Overall ejection fraction estimated at 60%. SELECTIVE CORONARY ANGIOGRAPHY: 1. Left main showed no significant angiographic disease. 2. Left anterior descending has previously placed stents, these are widely patent with no significant restenosis. No disease elsewise throughout the LAD or its branches. 3. The left circumflex shows moderate irregularities, but no flow-limiting stenosis. 4. Right coronary is small, nondominant with no significant disease. OVERALL IMPRESSION: Wide patency of the previously placed stents in the LAD. No disease elsewise. Continue medical management of the coronary artery disease and cardiac risk factors. TRANSINT:[id number] Voice Confirmation ID: [id number] DOCUMENT ID: [id number] MANNIE CANO MD at 1056 CC: [id number] DICTATION DATE: 08/11/17 0948 OTOLARYNGOLOGY NURSE: 08/11/17 1258 DEP CLI 08/11/17 [facility] [address] [place] [address]
[2017-08-11] MEDS ORDERED: VALIUM5 MG PO (08:03)
[2017-08-11 08:12] VITALS: BP 123/73; Ht 172.7 cm; Wt 120.5 kg
[2017-08-11 08:54] LABS: BASOPHILS 0.1 % (0-2); EOSINOPHILS 2.9 % (0-7); HEMATOCRIT 40.4 % (42.0-54.0); HEMOGLOBIN 13.9 g/dL (13.5-17.5); IMMATURE GRANULOCYTES 0.4 % (0-5); LYMPHOCYTES 19.2 % (15-50); MCH 31.3 pg (26.0-34.0); MCHC 34.4 g/dL (31.0-37.0); MEAN PLATELET VOLUME 10.3 fL (7.4-10.4); MONOCYTES 9.1 % (2-11); NEUTROPHILS 68.3 % (40-80); PLATELET COUNT 213 10x3/uL (130-400); RBC 4.44 10x6/uL (4.20-6.10); RDW 12.9 % (11.5-14.5); WBC 8.3 10x3/uL (4.8-10.8)
[2017-08-11 09:00] LABS: CALC OSMOLALITY 281 mosm/kg (275-300); CALCIUM 9.3 mg/dL (8.5-10.1); CHLORIDE - SERUM 104 mmol/L (98-107); CREATININE - SERUM 1.1 mg/dL (0.6-1.3); GLUCOSE 103 mg/dL (74-106); POTASSIUM - SERUM 4.4 mmol/L (3.5-5.1); SODIUM 139 mmol/L (136-145); UREA NITROGEN 24 mg/dL (7-18); eGFR NON AFRICAN AMERICAN 75 mL/min (90-120)
== END 2017-08-11 11:55 | disposition home or self-care (01) ==
LOC: D.CATH 07:35
PROVIDERS: Internal Medicine Interventional Cardiology
DX: I25.119 Atherosclerotic heart disease of native coronary artery with unspecified angina pectoris (principal); Z01.812 Encounter for preprocedural laboratory examination

== ENCOUNTER 2018-07-27 19:14 | Observation (INO) | payer BC ==
[~2018-07-27] VITALS: Ht 172.7 cm; Wt 122.9 kg
--- NOTE | ~2018-07-27 | HEMODYNAMI ---
PATIENT:WILMER WEISS MEDICAL RECORD: [id number] : 66 LOCATION:[facility] D.2123 ADMISSION DATE: 07/27/18 Generatedon:07/30/20188:38 Patient name: WILMER WEISS Patient #: [id number] SSN: D OB: 1970 Date of study: 07/30/2018 Page: Of Hemodynamic Procedure Report Patient Data Patient Demographics Procedure consent was obtained First Name: WILMER Gender: Male Last Name: ISELA : 1970 Middle Initial: W Age: 48 year(s) Patient #: [id number] Race: Additional ID: [id number] Contact details [address]: [address] [place] [address] State: [place] City: [place] Zip code: [address] Past Medical History Allergies: No known allergies Admission Admission Data Admission Date: 07/27/2018 Admission Time: 21:04 Room #: D.2123 Weight (lbs.): 271.17 Weight (kg.): 123 Lab Results Lab Result Date: 07/30/2018 Lab Result Time: 0:00 Biochemistry Name Units Result Min Max BUN mg/dl 23 --(----)-* 7 18 Creatinine mg/dl 1.2 --(---*)-- 0.6 1.3 CBC Name Units Result Min Max Hematocrit % 39.4 -*(----)-- 42 54 Hemoglobin g/dl 13.8 --(*---)-- 13.5 17.5 Procedure Procedure Types Cath Procedure Diagnostic Procedure [facility] w/Coronaries Aortic Root Angiography PCI Procedure Coronary Stent Coronary Stent Initial Procedure Description Procedure Date Procedure Date: 07/30/2018 Procedure Start Time: 8:08 Procedure End Time: 8:37 Procedure Staff Name Function Steven Cobos MD Performing Physician Efrain Richard RT Monitor Hina Henderson RT Scrub Meredith Huang RN Nurse Jane Casarez RN Headstart Teacher Procedure Data Cath Procedure Fluoroscopy Diagnostic fluoroscopy Total fluoroscopy Time: 4.1 time: 4.1 min min Diagnostic fluoroscopy Total fluoroscopy dose: dose: 1512 mGy 1512 mGy Contrast Material Contrast Material Type Amount (ml) Isovue 300 120 Entry Location Entry Primary Successful Side Size Upsize Upsize Entry Closure Succes sful Closure Location (Fr) 1 (Fr) 2 (Fr) Remarks Device Remarks Femoral Right 5 Fr 6 Fr Exoseal artery Short Estimated blood loss: 10 ml Diagnostic catheters Device Type Used For End Catheter Placement MULTIPACK JL 4.0 5Fr Procedure catheter MULTIPACK 3DRC 5Fr Procedure catheter MULTIPACK Pigtail 5 Fr Procedure catheter Procedure Complications No complications Procedure Medications Medication Administration Route Dosage 0.9% NaCl I.V. 100 ml/hr Oxygen etCO2 Nasal cannula 2 l/min Lidocaine 2% added to field 20 Heparin Flush Bag added to field 2 bags (1000units/500ml NS) Versed I.V. 2 mg Fentanyl I.V. 50 mcg Versed I.V. 2 mg Fentanyl I.V. 50 mcg Versed I.V. 2 mg Plavix P.O. 75 mg Heparin Bolus I.V. 32621 units Hemodynamics Rest HGB: 13.8 (g/dl) Heart Rate: 55 (bpm) Pressure Samples Time Site Value (mmHg) Purpose Heart Use Rate(bpm) 8:11 AO 134/60(95) Snapshot 55 8:11 AO 126/78(98) Snapshot 57 8:16 LV 131/4,20 Snapshot 59 8:16 AO 134/77(98) Pullback 60 8:16 LV 135/3,29 Pullback 60 8:17 AO 125/81(100) Snapshot 63 Gradients Valve Time Site 1 Site 2 Mean SEP/DFP Peak To Heart Use (mmHg) (sec/min) Peak Rate (mmHg) (bpm) Aortic 8:16 LV AO 11 18 1 60 135/3,29 134/77(98) Calculations Valve P-P Mean Valve Index Valve Source Name Gradient Area Flow (cm2) Aortic 1 11 1 11 Snapshots Pre Cath Intra NCS Post Cath Vital Signs Time Heart Resp SPO2 etCO2 NIBP (mmHg) Rhythm Pain Sedation Rate (ipm) (%) (mmHg) Status Level (bpm) 7:51:28 54 15 95 15.9 171/84(137) SB 0 (11) 10(A) , No pain 7:55:58 54 16 97 37.1 144/83(118) SB 0 (11) 10(A) , No pain 8:00:17 56 14 95 39.4 129/84(99) SB 0 (11) 10(A) , No pain 8:04:37 57 13 98 38.6 133/79(104) SB 0 (11) 10(A) , No pain 8:08:57 63 15 97 39.4 133/85(97) NSR 0 (11) 10(A) , No pain 8:13:17 60 14 98 40.9 134/80(97) NSR 0 (11) 9(A) , No pain 8:17:35 63 14 97 40.1 128/84(102) NSR 0 (11) 9(A) , No pain 8:21:49 55 16 98 37.1 130/82(100) SB 0 (11) 9(A) , No pain 8:26:09 59 18 96 39.4 135/77(95) SB 0 (11) 9(A) , No pain 8:30:31 61 16 98 37.1 121/77(101) NSR 0 (11) 10(A) , No pain 8:35:49 67 22 94 37.1 131/81(103) NSR 0 (11) 10(A) , No pain Medications Time Medication Route Dose Verified Delivered Reason Notes Effectiveness by by 7:50:13 0.9% NaCl I.V. 100 Steven Meredith used for ml/hr Papito Huang road roller engineer 7:50:18 Plavix P.O. 75 mg Steven Meredith for Papito Huang antiplatelet RN therapy 7:50:19 Oxygen etCO2 2 Steven Meredith used for Nasal l/min Papito Huang procedure cannula RN 7:50:25 Lidocaine 2% added 20ml Steven Steven for local to vial Papito Cobos MD anesthetic field 7:50:30 Heparin Flush added 2 Steven Steven used for Bag to bags Papito Cobos MD procedure (1000units/500ml field NS) 8:00:37 Versed I.V. 2 mg Steven Meredith for sedation Papito Huang RN 8:00:51 Fentanyl I.V. 50 Steven Meredith for sedation mcg Papito Huang RN 8:06:52 Versed I.V. 2 mg Steven Meredith for sedation Papito Huang RN 8:06:55 Fentanyl I.V. 50 Steven Meredith for sedation mcg Papito Huang RN 8:11:14 Versed I.V. 2 mg Steven Meredith for sedation Papito Huang RN 8:21:40 Heparin [place]us [place].V. 45107 Steven Meredith for verifi ed units Papito Haung anticoagulation with Dr. MAGNOLIA Cobos Procedure Log Time Note 7:32:19 Signed procedure consent form obtained from patient. 7:32: Diagnostic Cath status Elective 7:32:22 Time tracking: Regular hours (M-F 7:00 - 5:00) 7:32:25 Plan of Care:Hemodynamics will remain stable., Cardiac rhythm will remain stable., Comfort level will be maintained., Respiratory function will remain adequate., Patient/ family verbilizes understanding of procedure., Procedure tolerated without complication., Recovers from procedure without complications.. 7:32:29 Jane Casarez RN sent for patient. Start room use. 7:33:19 Patient allergic to No known allergies 7:33:52 Lab Result : Creatinine 1.2 mg/dl 7:33:52 Lab Result : BUN 23 mg/dl 7:33:52 Lab Result : Hemoglobin 13.8 g/dl 7:33:52 Lab Result : Hematocrit 39.4 % 7:45:22 Patient received from Med II to CCL 1 Alert and oriented. Tansferred to table in Supine position. 7:45:23 Warm blankets applied, and otilio hugger turned on for patient comfort. 7:45:24 Correct patient and procedure confirmed by team. 7:45:25 ECG and BP/O2 sat monitors applied to patient. 7:50:02 Vital chart was started 7:50:13 0.9% NaCl 100 ml/hr I.V. was administered by Meredith Huang RN; used for procedure; 7:50:18 Plavix 75 mg P.O. was administered by Meredith Huang RN; for antiplatelet therapy; 7:50:19 Oxygen 2 l/min etCO2 Nasal cannula was administered by Meredith Huang RN; used for procedure; 7:50:25 Lidocaine 2% 20ml vial added to field was administered by Steven Cobos MD; for local anesthetic; 7:50:30 Heparin Flush Bag (1000units/500ml NS) 2 bags added to field was administered by Steven Cobos MD; used for procedure; 7:57:22 Baseline sample Acquired. 7:57:26 Rhythm: sinus bradycardia 7:57:28 Full Disclosure recording started 7:57:35 H&P Date Dictated: 07/28/2018 Within 30 days and on chart., H&P Addendum completed by physician on day of procedure. (MUST COMPLETE FOR ALL OUTPATIENTS). 7:57:36 Pre-procedure instructions explained to patient. 7:57:37 Pre-op teaching completed and patient verbalized understanding. 7:57:39 Family in patients room. 7:58:07 Patient NPO since Midnight. 7:58:09 Is the patient allergic to Iodine/contrast media? No. 7:58:11 Is patient on blood thinner?Yes 7:58:14 ACC The patient was administered the following blood thiners within the last 24 hours: ACCPlavix 7:58:17 Patient diabetic? No. 7:58:19 Previous problem with sedation/anesthesia? No ? 7:58:21 Snore? Yes 7:58:22 Sleep apnea? No 7:58:24 Deviated septum? No 7:58:24 Opens mouth fully? Yes 7:58:25 Sticks out tongue? Yes 7:58:31 Airway obstruction? No ? 7:58:33 Dentures? No ? 7:58:42 Pre procedure: right dorsailis pedis pulse 1+ Palpable, but thready & weak; easily obliterated 7:58:48 Patient pain scale 0/10 ?. 7:58:53 IV patent on arrival in left forearm with 0.9% NaCl at KVO. 7:58:57 Lab results completed and on chart. 7:59:01 Right groin area was prepped with chlora-prep and draped in sterile fashion 7:59:02 Alarms reviewed by R. N. 7:59:02 Sharps counted by scrub and verified by R.N. 7:59:57 --------ALL STOP TIME OUT------ 7:59:58 Final Timeout: patient, procedure, and site verified with staff and physician. All members of the team are in agreement. 8:00:04 Right groin site verified by team. 8:00:12 Maximum allowable Isovue 300 dose 300ml. Physician notified. (300ml for normal creatinines. For patients with creatinine of 1.7 or higher multiply weight(kg) x 5 divided by creatinine.) 8:00:16 Fire Safety Assessment: A--An alcohol-based skin anteseptic being used preoperatively., C--Open oxygen or nitrous oxide is being used., D--An ESU, laser, or fiber-optic light is being used. 8:00:20 Physical assessment completed. ASA score P 2 - A patient with mild systemic disease as per Steven Cobos MD. 8:00:23 Sedation plan: IV Moderate Sedation Medication:Versed, Fentanyl 8:00:37 Versed 2 mg I.V. was administered by Meredith Huang RN; for sedation; 8:00:51 Fentanyl 50 mcg I.V. was administered by Meredith Huang RN; for sedation; 8:01:39 Patient Weight : 271.17 lbs 8:01:54 Use device set Femoral Dx 8:01:55 Tegaderm 4 x 4 (1626W) opened to sterile field. 8:01:56 ACIST Manifold (35795) opened to sterile field. 8:01:57 ACIST Hand Control (66408) opened to sterile field. 8:01:59 ACIST Syringe (65545) opened to sterile field. 8:01:59 Bag Decanter (2002S) opened to sterile field. 8:01:59 Medline Cath Pack ([id number]) opened to sterile field. 8:02:00 DIAGNOSTIC WIRE .035 260cm J wire (428600) opened to sterile field. 8:02:02 DIAGNOSTIC Multipack 5Fr catheter set (YK7855) opened to sterile field. 8:02:03 SHEATH 5FR Hollis (MPW346) opened to sterile field. 8:06:52 Versed 2 mg I.V. was administered by Meredith Huang RN; for sedation; 8:06:55 Fentanyl 50 mcg I.V. was administered by Meredith Huang RN; for sedation; 8:08:09 Procedure started. 8:08:23 Local anesthetic to right femoral artery with Lidocaine 2% by Steven Cobos MD.INITIAL ACCESS ONLY 8:08:58 Zero performed for pressure channel P1 8:10:34 A 5 Fr sheath was inserted into the Right Femoral artery 8:11:14 Versed 2 mg I.V. was administered by Meredith Huang RN; for sedation; 8:11:29 A MULTIPACK JL 4.0 5Fr catheter was advanced over the wire and used for Procedure. 8:12:19 LCA angiography performed. 8:13:33 Catheter exchanged over wire. 8:13:39 A MULTIPACK 3DRC 5Fr catheter was advanced over the wire and used for Procedure. 8:14:55 RCA angiography performed. 8:14:57 Catheter exchanged over wire. 8:15:34 A MULTIPACK Pigtail 5 Fr catheter was advanced over the wire and used for Procedure. 8:16:28 LV angiography performed. 8:16:30 LV gram done using ASIF 8:16:38 EF : 55 % 8:16:54 LV hemodynamics recorded. 8:16:57 Injector settings: Ml/sec: 10, Volume: 20, 8:17:22 Aortic Root visualized 8:17:26 Injector settings: Ml/sec: 15, Volume: 30, 8:18:02 Catheter exchanged over wire. 8:18:06 Use device set COBOS PCI 8:18:16 GUIDE 6FR EBU 3.75 catheter ([id number]) opened to sterile field. 8:18:17 SHEATH 6FR Hollis (GVH667) opened to sterile field. 8:18:21 BMW 300cm Ayer 2 J wire ([id number]) opened to sterile field. 8:18:23 INFLATOR Merit BasixCompak (UR5918) opened to sterile field. 8:18:23 TUBING High Pressure Extension Tubing (Papito) ([id number]) opened to sterile field. 8:19:58 Sheath upsized to a 6 Fr Short. 8:20:08 6 Fr EBU 3.75 guide catheter was inserted over the wire 8:21:40 Heparin Bolus 93176 units I.V. was administered by Meredith Huang RN; for anticoagulation; verified with Dr. Cobos 8:23:37 BMW wire advanced. 8:26:11 Wire advanced across lesion. 8:29:33 Place stent Inflation Number: 1 A INTEGRITY RX 3.5 x 18 stent ([id number]) was prepped and advanced across the Prox CX. The stent was deployed at 12 ISMAEL for 0:10 (min:sec). 8:31:00 EXOSEAL 6Fr (EX600) opened to sterile field. 8:31:11 Stent catheter was removed intact over wire. 8:31:12 Wire removed. 8:31:13 Guide catheter removed. 8:31:24 Sheath removed intact; hemostasis achieved with Exoseal to the Right Femoral artery. 8:31:27 Procedure ended.(Physican Out) 8:33:31 Fluoroscopy time 04.10 minutes. 8:33:36 Fluoroscopy dose: 1512 mGy 8:33:36 Flurop Dose total: 1512 8:33:42 Contrast amount:Isovue 300 120ml. 8:33:44 Sharps counted by scrub and verified by R.N. 8:33:45 Insertion/operative site no bleeding no hematoma. 8:33:48 Post-op/insertion site Right Femoral artery dressed using a 4 x 4 and Tegaderm. 8:33:50 Post Procedure Pulses reassessed and unchanged 8:33:53 Post-procedure physical assessment completed. ASA score P 2 - A patient with mild systemic disease as per Steven Cobos MD. 8:34:00 Post procedure rhythm: sinus rhythm 8:34:03 Estimated blood loss: 10 ml 8:34:05 Post procedure instruction explained to patient.Patient verbalizes understanding. 8:34:06 Patient needs reinforcement of post procedure teaching. 8:34:12 Procedure type changed to Cath procedure, Diagnostic procedure, LHC, LHC w/Coronaries, Aortic Root Angiography, PCI procedure, Coronary Stent, Coronary Stent Initial 8:34:14 Procedure and supply charges have been captured, reviewed, submitted and are correct. 8:34:17 Procedure Complication : No complications 8:34:22 Vital chart was stopped 8:35:34 See physician's report for complete and final results. 8:37:00 Report given to Med II. 8:37:13 Patient transfered to Med II with Bed. 8:37:15 Procedure ended. 8:37:15 Full Disclosure recording stopped 8:37:38 End room use (Document Last) Intervention Summary Intervention Notes Time ActionType Lesion and Equipment Action# Pressure Duration Attributes Used 8:29:33 Place stent Prox CX INTEGRITY RX 1 12 00:10 3.5 x 18 stent ([id number]) Device Usage Item Name Manufacture Quantity Catalog Hospital Part Current Minimal Lot# / Number Charge Number Stock Stock Serial# Code Tegaderm 4 x 3M 1 1626W [id number] 930484 617741 5 4 (1626W) ACIST Acist 1 71774 441934 567389 183363 5 Manifold Medical (78509) Systems Inc ACIST Hand Acist 1 71059 230644 569675 811198 5 Control Medical (90748) Systems Inc ACIST Acist 1 71552 671509 838244 519405 20 Syringe Medical (18527) Systems Inc Bag Decanter Microtek 1 2001S 430713 11218 145403 5 (2001S) Medical Inc. Medline Cath Medline 1 [id number] 825419 57958 578320 5 Pack ([id number]) DIAGNOSTIC St Isac 1 763300 202205 875957 001546 30 WIRE .035 260cm J wire (128187) DIAGNOSTIC Cardinal 1 PQ5209 107953 20977 368414 30 Multipack Health 5Fr catheter set (RH5700) SHEATH 5FR Terumo 1 ZWL145 974173 850864 779120 5 Hollis (YOF732) MULTIPACK JL Cardinal 1 464485 5 4.0 5Fr Health catheter MULTIPACK Cardinal 1 086574 5 3DRC 5Fr Health catheter MULTIPACK Cardinal 1 085238 5 Pigtail 5 Fr Health catheter GUIDE 6FR Medtronic 1 [id number] 316490 68449 023279 1 EBU 3.75 catheter ([id number]) SHEATH 6FR Terumo 1 OKP960 361165 045482 918269 40 Hollis (TLX760) BMW 300cm Duenas 1 [id number] 663080 771927 992668 5 Ayer 2 Vascular J wire ([id number]) INFLATOR Merit 1 CD3755 161186 390435 244224 15 Merit Medical BasixCompak (JO1547) TUBING High Merit 1 [id number] 600342 97543 907870 10 Pressure Medical Extension Tubing (Cobos) (LQ8659F) INTEGRITY RX Medtronic 1 [id number] 728647 746258 587265 5 [id number] 3.5 x 18 stent ([id number]) EXOSEAL 6Fr Cardinal 1 EX600 289954 501523 323176 10 (EX600) Health Signature Audit [place] Stage Time Signature Unsigned Intra-Procedure 07/30/2018 Efrain Richard 8:38:17 AM RT(R) Signatures Monitor : Efrain Richard RT Signature : Date : Time : [place] [address] [place] [address]
[~2018-07-27 19:14] MED LIST changes: +VALIUM5 MG PO
[2018-07-27] MEDS ORDERED: RANEXA500 MG PO (19:19)
[2018-07-27 19:45] LABS: BASOPHILS 0.1 % (0-2); EOSINOPHILS 2.6 % (0-7); HEMATOCRIT 39.2 % (42.0-54.0); HEMOGLOBIN 13.5 g/dL (13.5-17.5); IMMATURE GRANULOCYTES 0.3 % (0-5); LYMPHOCYTES 27.7 % (15-50); MCH 31.4 pg (26.0-34.0); MCHC 34.4 g/dL (31.0-37.0); MCV 91.2 fL (80.0-100.0); MONOCYTES 11.2 % (2-11); NEUTROPHILS 58.1 % (40-80); PLATELET COUNT 210 10x3/uL (130-400); RDW 12.7 % (11.5-14.5); WBC 7.3 10x3/uL (4.8-10.8)
[2018-07-27 20:08] LABS: APTT 26.4 SECONDS (22.8-39.4); INR 1.07 (0.85-1.17); PROTIME 13.4 SECONDS (11.6-15.0)
[2018-07-27 20:12] LABS: ALBUMIN 3.4 g/dL (3.4-5.0); ALKALINE PHOSPHATASE 109 U/L (46-116); ALT (SGPT) 29 U/L (10-68); BILIRUBIN - TOTAL 0.36 mg/dL (0.2-1.3); CALC OSMOLALITY 280 mosm/kg (275-300); CALCIUM 8.3 mg/dL (8.5-10.1); CARBON DIOXIDE 27.7 mmol/L (21.0-32.0); CHLORIDE - SERUM 104 mmol/L (98-107); CREATININE - SERUM 1.2 mg/dL (0.6-1.3); GLUCOSE 103 mg/dL (74-106); POTASSIUM - SERUM 3.7 mmol/L (3.5-5.1); PROTEIN - SERUM 7.3 g/dL (6.4-8.2); SODIUM 138 mmol/L (136-145); UREA NITROGEN 26 mg/dL (7-18); eGFR NON AFRICAN AMERICAN 68 mL/min (90-120)
[2018-07-27 20:28] LABS: CKMB 1.4 U/L (0.0-3.6); CREATINE KINASE 265 UL (21-232); MAGNESIUM - SERUM 2.1 mg/dL (1.8-2.4); TROPONIN-I < 0.017 ng/mL (0.000-0.060)
[2018-07-27] MEDS ORDERED: NITROQUICK0.4 MG SL (23:37)
[2018-07-28] VITALS (7 sets, daily range): BP systolic 108–182; BP diastolic 52–80; BMI 41.3
--- NOTE | 2018-07-28 00:45 | NUR ---
PT ARRIVED TO ROOM 2122 PT IS AAO, UP AD BOGDAN. DENIES ANY CHEST PAIN AT THIS TIME. QUICK START/ MED REC AND HISTORY COMPLETE. PT SPOUSE AT BEDSIDE. ALEXANDRO ISELA [phone] LEFT FOREARM PIV 20G HEART SOUNDS S1S2 RRR LUNGS CLEAR. TELEMETRY APPLIED. PT WEIGHT IS 271 LBS PER STANDING SCALE. PT HAS NO S/S OF DISTRESS. BED LOW AND CALL LIGHT IN REACH. SPOKE WITH PT REGARDING CARDIOLOGY CONSULT AND VERBALIZED UNDERSTANDING OF BEING NPO UNTIL SEEN BY CARDIOLOGY. PT WILL CALL FOR ASSIST WHEN NEEDED. WILL CPOC
--- NOTE | 2018-07-28 04:23 | NUR ---
PT ASLEEP. AROUSES TO VERBAL STIMULI. DENIES ANY NEEDS. NO S/S OF DISTRESS. BEDLOW AND CALL LIGHT IN REACH. WILL CPOC
--- NOTE | 2018-07-28 07:25 | NUR ---
ASSESSMENT DONE. DENIES NEEDS.
--- NOTE | 2018-07-28 14:45 | NUR ---
I have reviewed this patient and I concur with the Shift Assessment completed by the Licensed Practical Nurse today this shift.
--- NOTE | 2018-07-28 17:42 | NUR ---
WITHOUT CHANGES OR DISTRESS NOTED AT THIS TIME. DENIES NEEDS.
--- NOTE | 2018-07-28 20:37 | NUR ---
RECIEVED LAYING IN BED WITH EYES CLOSED. NO S/S OF DISTRESS OBSERVED. EASILY AROUSES WITH VERBAL STIMULI. TELEMETRY STICKERS OFF D/T PERSPIRATION. REQUESTED A SHAOWER. COVERED IV UP AND SPOUSE AT BEDSIDE ASSISTED WITH SHOWER. DENIES ANY NEEDS. TELEMETRY PLACED BACK ON AFTER SHOWER.
--- NOTE | 2018-07-28 21:11 | NUR ---
B/P RECHECKED WITH LG CUFF. 147/76. PT HAS LARGE BICEPTS.
[2018-07-29 00:29] VITALS: BP 126/62
[2018-07-29 03:55] VITALS: BP 128/57
[2018-07-29 04:54] LABS: BASOPHILS 0.1 % (0-2); EOSINOPHILS 2.8 % (0-7); HEMOGLOBIN 13.1 g/dL (13.5-17.5); IMMATURE GRANULOCYTES 0.2 % (0-5); LYMPHOCYTES 27.4 % (15-50); MCH 31.3 pg (26.0-34.0); MCHC 34.5 g/dL (31.0-37.0); MCV 90.9 fL (80.0-100.0); MEAN PLATELET VOLUME 10.1 fL (7.4-10.4); MONOCYTES 9.9 % (2-11); NEUTROPHILS 59.6 % (40-80); PLATELET COUNT 184 10x3/uL (130-400); RBC 4.18 10x6/uL (4.20-6.10); RDW 12.5 % (11.5-14.5); WBC 8.3 10x3/uL (4.8-10.8)
[2018-07-29 05:18] LABS: ANION GAP 9.9 mmol/L (8-16); CALCIUM 8.4 mg/dL (8.5-10.1); CREATININE - SERUM 1.3 mg/dL (0.6-1.3); POTASSIUM - SERUM 3.9 mmol/L (3.5-5.1)
--- NOTE | 2018-07-29 07:10 | NUR ---
ASSESSMENT DONE. DENIES NEEDS.
--- NOTE | 2018-07-29 07:58 | NUR ---
I have reviewed this patient and I concur with the Shift Assessment completed by the Licensed Practical Nurse today this shift.
[2018-07-29 09:00] VITALS: BP 139/83
[2018-07-29 12:41] VITALS: BP 134/61
[2018-07-29 16:25] VITALS: BP 130/67
--- NOTE | 2018-07-29 17:44 | NUR ---
WITHOUT CHANGES OR DISTRESS NOTED AT THIS TIME. DENIES NEEDS.
--- NOTE | 2018-07-29 20:00 | NUR ---
RECIEVED UP IN BED WITH EYES OPEN AND TV ON. ALERT AND ORIENTED X4. SPOKE WITH PT REGARDING PROCEDURE IN A.M.. DENIES ANY QUESTIONS. . IV TO LEFT FA SL.. TELEMETRY IN PLACE. CONSENTS SIGNED AND NPO SIGN ON DOOR. DENIES ANY NEEDS
[2018-07-29 20:26] VITALS: BP 142/62
[2018-07-30 01:37] VITALS: BP 116/53
[2018-07-30 05:31] VITALS: BP 115/66
[2018-07-30 06:11] LABS: BASOPHILS 0.1 % (0-2); HEMATOCRIT 39.4 % (42.0-54.0); HEMOGLOBIN 13.8 g/dL (13.5-17.5); IMMATURE GRANULOCYTES 0.4 % (0-5); LYMPHOCYTES 24.8 % (15-50); MCH 31.3 pg (26.0-34.0); MCV 89.3 fL (80.0-100.0); MONOCYTES 9.7 % (2-11); PLATELET COUNT 192 10x3/uL (130-400); RBC 4.41 10x6/uL (4.20-6.10); RDW 12.7 % (11.5-14.5); WBC 7.9 10x3/uL (4.8-10.8)
[2018-07-30 06:24] LABS: ANION GAP 13.2 mmol/L (8-16); CALCIUM 8.7 mg/dL (8.5-10.1); CARBON DIOXIDE 27.8 mmol/L (21.0-32.0); CREATININE - SERUM 1.2 mg/dL (0.6-1.3)
--- NOTE | 2018-07-30 07:44 | NUR ---
ALERT AND ORIENTED. TELEMERTY SHOWS SR. DENIES ANY NEEDS AT PRESENT TIME. LEFT FA IV OF NS. PREPED AND READY FOR CATH.
--- NOTE | 2018-07-30 09:50 | NUR ---
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 V/S STABLE TELEMERTY SHOWS SR. RIGHT GROIN SOFT WITH DRSG DRY AND INTACT. FAMILY AT BEDSIDE.
--- NOTE | 2018-07-30 09:52 | NUR ---
RIGHT GROIN SOFT WITH DRSG DRY AND INTACT. PPP. FAMILY AT BED SIDE
[2018-07-30 11:52] VITALS: BP 149/87
[2018-07-30 12:41] VITALS: Ht 172.7 cm; Wt 122.9 kg
--- NOTE | 2018-07-30 14:41 | NUR ---
LYING QUIETLY. RIGHT GROIN SOFT WITH DRSG DRY AND INTACT. PPP. NO NEEDS VOICED TELEMERTY SHOWS SR.
--- NOTE | 2018-07-30 16:17 | NUR ---
PT BEING DISCHARGED. TELEMERTY TAKEN OFF PER PT. IV DCD WITH TIP INTACT.AWAITING DISCHARGE PAPERS, RIGHT GROIN SOFT WITH DRSG DRY AND INTACT. NO NEEDS VOICED
--- NOTE | 2018-07-30 16:56 | MORECARE ---
CASE MANAGEMENT DISCHARGE SUMMARY PATIENT: WILMER WEISS UNIT: [id number] ADM DATE: 07/27/18 AGE: 48 : 66 SEX: M ROOM/BED: D.2123 AUTHOR: GIULIANO FRANK PHYSICIAN: REFERRING PHYSICIAN: JENNIFER COOK MD DATE OF SERVICE: 07/30/18 Discharge Plan Patient Name: WILMER WEISS Facility: [facility]:[place] : 1970 Planned Disposition: Home Anticipated Discharge Date: 07/30/18 Discharge Date: Expected LOS: 3 Initial Reviewer: [email or web address] Initial Review Date: 07/30/2018 Generated: 07/30/18 5:56 pm Patient Name: WILMER WEISS Page [id number] at 1656 All edits/amendments must be made on the electronic document DICTATION DATE: 07/30/181655 FOLDER OPERATOR: GREG 07/30/181655 RPT#: [id number] DC DATE: STATUS: ADM IN [facility] [address] [place] [address] END OF REPORT
--- NOTE | 2018-07-30 17:07 | NUR ---
PT DISCHARGED. TO PRIVATE CAR PER WHEELCHAIR,
== END 2018-07-30 17:09 | disposition home or self-care (01) ==
LOC: D.ER 19:14 → D.M2 21:04 → OBSVTIME 07-28 03:01 → D.M2 07-30 17:09
PROVIDERS: Family Medicine; ADMIT Internal Medicine Nephrology; ATTEND Internal Medicine Nephrology
DX: I25.110 Atherosclerotic heart disease of native coronary artery with unstable angina pectoris (principal); N17.9 Acute kidney failure, unspecified; E78.5 Hyperlipidemia, unspecified; I10 Essential (primary) hypertension; F32.9 Major depressive disorder, single episode, unspecified; F41.9 Anxiety disorder, unspecified; I08.0 Rheumatic disorders of both mitral and aortic valves

== ENCOUNTER 2019-02-01 06:24 | Outpatient (CLI) | payer BC ==
[~2019-02-01] VITALS: Ht 172.7 cm; Wt 120.5 kg
--- NOTE | ~2019-02-01 | HEMODYNAMI ---
PATIENT:WILMER WEISS MEDICAL RECORD: [id number] : 66 [facility] [id number] ADMISSION DATE: 02/01/19 Generatedon:02/01/201912:56 Patient name: WILMER WEISS Patient #: [id number] SSN: [id number] : 1970 Date of study: 02/01/2019 Page: Of Hemodynamic Procedure Report Patient Data Patient Demographics Procedure consent was obtained First Name: WILMER Gender: Male Last Name: ISELA : 1970 Middle Initial: W Age: 48 year(s) Patient #: [id number] Race: SSN: [id number] Additional ID: [id number] Contact details Address: [address] [place] [address] State: [place] City: [place] Zip code: [address] Past Medical History Allergies: No known allergies Admission Admission Data Admission Date: 02/01/2019 Admission Time: 8:45 Arrival Date: 02/01/2019 Arrival Time: 8:45 Admit Source: Emergency Insurance Payor: Private department health insurance Room #: D.2118 Height (in.): 68 BSA: 2.3 (m2) Height (cm.): 172.72 BMI: 40.29 (kg/m2) Weight (lbs.): 265 Weight (kg.): 120.2 Lab Results Lab Result Date: 02/01/2019 Lab Result Time: 0:00 Biochemistry Name Units Result Min Max BUN mg/dl 31 --(----)-* 7 18 Creatinine mg/dl 1.4 --(----)*- 0.6 1.3 eGFR ml/min 57 *-(----)-- 90 120 NONAFRICAN CBC Name Units Result Min Max Hemoglobin g/dl 13.8 --(*---)-- 13.5 17.5 Procedure Procedure Types Cath Procedure Diagnostic Procedure LHC [facility] w/Coronaries Sedation Charges Moderate Sedation up to 45 minutes PCI Procedure Coronary Stent Coronary Stent Initial PTCA PTCA Initial Procedure Description Procedure Date Procedure Date: 02/01/2019 Procedure Start Time: 12:14 Procedure End Time: 12:53 Procedure Staff Name Function Steven Parmar MD Performing Physician Efrain Richard RT Monitor Julieta Gil RT Scrub Jane Casarez RN Nurse Meredith Huang RN Nurse Procedure Data Cath Procedure Fluoroscopy Diagnostic fluoroscopy Total fluoroscopy Time: 6.7 time: 6.7 min min Diagnostic fluoroscopy Total fluoroscopy dose: dose: 2117 mGy 2117 mGy Contrast Material Contrast Material Type Amount (ml) Isovue 300 142 Entry Location Entry Primary Successful Side Size Upsize Upsize Entry Closure Succes sful Closure Location (Fr) 1 (Fr) 2 (Fr) Remarks Device Remarks Femoral Right 5 Fr 6 Fr Exoseal artery Short Estimated blood loss: 10 ml Diagnostic catheters Device Type Used For End Catheter Placement MULTIPACK JL 4.0 5Fr Procedure catheter MULTIPACK 3DRC 5Fr Procedure catheter MULTIPACK Pigtail 5 Fr Procedure catheter Procedure Complications No complications Procedure Medications Medication Administration Route Dosage Oxygen etCO2 Nasal cannula 2 l/min Lidocaine 2% added to field 20 Heparin Flush Bag added to field 2 bags (1000units/500ml NS) 0.9% NaCl I.V. 100 ml/hr Versed I.V. 2 mg Fentanyl I.V. 100 mcg Versed I.V. 2 mg Heparin Bolus I.V. 63197 units Versed I.V. 2 mg Nitroglycerin IC/IA I.C. 100 mcg Hemodynamics Rest BSA: 2.3 (m2) HGB: 13.8 (g/dl) O2 Consumption: Estimated: 257.36 (ml/min) O2 Con sumption indexed: Estimated:111.9 (ml/min/m) Heart Rate: 50 (bpm) Pressure Samples Time Site Value (mmHg) Purpose Heart Use Rate(bpm) 12:22 LV 113/4,20 Snapshot 56 12:23 AO 118/65(87) Pullback 58 12:23 LV 124/0,23 Pullback 58 Gradients Valve Time Site 1 Site 2 Mean SEP/DFP Peak To Heart Use (mmHg) (sec/min) Peak Rate (mmHg) (bpm) Aortic 12:23 LV AO 15 16 6 58 124/0,23 118/65(87) Calculations Valve P-P Mean Valve Index Valve Source Name Gradient Area Flow (cm2) Aortic 6 15 6 15 Snapshots Pre Cath Intra NCS Post Cath Vital Signs Time Heart Resp SPO2 etCO2 NIBP (mmHg) Rhythm Pain Sedation Rate (ipm) (%) (mmHg) Status Level (bpm) 11:58:58 49 12 97 0 136/79(100) NSR 0 (11) 10(A) , No pain 12:03:10 50 18 99 39.2 133/76(111) NSR 0 (11) 10(A) , No pain 12:07:24 52 19 99 42.1 128/68(98) NSR 0 (11) 10(A) , No pain 12:11:40 51 15 98 43.7 118/68(89) NSR 0 (11) 10(A) , No pain 12:15:56 50 16 97 44.4 119/63(87) NSR 0 (11) 10(A) , No pain 12:20:14 56 21 97 42.9 129/62(86) NSR 0 (11) 9(A) , No pain 12:24:30 59 18 98 43.7 121/64(87) NSR 0 (11) 9(A) , No pain 12:28:46 57 18 97 42.9 112/60(81) NSR 0 (11) 9(A) , No pain 12:33:00 58 36 97 42.1 110/55(75) NSR 0 (11) 9(A) , No pain 12:37:20 66 14 97 38.4 108/55(79) NSR 0 (11) 9(A) , No pain 12:41:34 53 17 96 42.1 112/59(79) NSR 0 (11) 9(A) , No pain 12:45:48 53 19 97 39.1 110/56(78) NSR 0 (11) 10(A) , No pain 12:50:04 54 19 96 39.1 122/57(78) NSR 0 (11) 10(A) , No pain 12:54:20 52 17 96 42.1 124/62(89) NSR 0 (11) 10(A) , No pain Medications Time Medication Route Dose Verified Delivered Reason Note s Effectiveness by by 12:01:06 Oxygen etCO2 2 Steven Buffie used for Nasal l/min Parmar MD Casarez field recruiter cannula 12:01:12 Lidocaine 2% added 20ml Steven Steven for local to vial Papito Parmar MD anesthetic field 12:01:18 Heparin Flush added 2 bags Steven Steven used for Bag to Papito Parmar MD procedure (1000units/500ml field NS) 12:01:35 0.9% NaCl I.V. 100 Steven Buffie Per physician ml/hr Papito Casarez RN 12:10:44 Versed I.V. 2 mg Steven Buffie for sedation Papito Casarez RN 12:10:51 Fentanyl I.V. 100 Steven Buffie for sedation mcg Papito Casarez RN 12:16:23 Versed I.V. 2 mg Steven Buffie for sedation Papito Casarez RN 12:26:49 Heparin Bolus I.V. 10,000 Steven Buffie for veri fied units Papito Casarez RN anticoagulation with dr parmar 12:29:39 Versed I.V. 2 mg Steven Buffie for sedation Papito Casarez RN 12:36:25 Nitroglycerin I.C. 100 Steven Setven for IC/IA mcg Papito Parmar MD vasodilation Procedure Log Time Note 11:21:45 Diagnostic Cath Status : Elective 11:22:13 Procedure Status Urgent Heart Cath (IP). 11:22:14 Efrain Richard RT(R) sent for patient. Start room use. 11:22:16 Time tracking: Regular hours (M-F 7:00 - 5:00) 11:22:20 Plan of Care:Hemodynamics will remain stable., Cardiac rhythm will remain stable., Comfort level will be maintained., Respiratory function will remain adequate., Patient/ family verbilizes understanding of procedure., Procedure tolerated without complication., Recovers from procedure without complications.. 11:22:27 ACC Patient presents with Unstable Angina CCS Anginal Class 4--Inability to carry out any physical activity w/o angina. Angina may occur at rest. 11:27:15 Informed consent obtained and on chart 11:30:53 Admit Source: Emergency department 11:30:58 Arrival Date: 02/01/2019 8:45:00 AM 11:31:04 Insurance Payor : Private health insurance 11:31:40 Lab Result : eGFR NONAFRICAN 57 ml/min 11:31:40 Lab Result : Hemoglobin 13.8 g/dl 11:31:40 Lab Result : BUN 31 mg/dl 11:31:40 Lab Result : Creatinine 1.4 mg/dl 11:31:55 3a) 45-59 Moderately reduced kidney function. 11:32:17 Maximum allowable contrast dose (3.7 X eGFR X 0.75)158 ml. 11:35:07 Patient Height : 68 inches 11:35:12 Patient Weight : 265 lbs 11:50:29 Patient received from PCU to CCL 2 Alert and oriented. Tansferred to table in Supine position. 11:50:31 Warm blankets applied, and otilio hugger turned on for patient comfort. 11:50:31 Correct patient and procedure confirmed by team. 11:50:31 ECG and BP/O2 sat monitors applied to patient. 11:57:47 Vital chart was started 11:57:49 Baseline sample Acquired. 11:57:52 Rhythm: sinus rhythm 11:57:54 Full Disclosure recording started 11:57:58 H&P Date Dictated: 02/01/2019 New H&P dictated by physician.. 11:58:00 Pre-procedure instructions explained to patient. 11:58:01 Pre-op teaching completed and patient verbalized understanding. 11:58:07 Family in patients room. 11:58:09 Patient NPO since Midnight. 11:58:11 Is the patient allergic to Iodine/contrast media? No. 11:58:13 Was the patient premedicated? No 11:58:14 Is patient on blood thinner?Yes 11:58:17 ACC The patient was administered the following blood thiners within the last 24 hours: ACCPlavix 11:58:19 Patient diabetic? No. 11:58:21 Previous problem with sedation/anesthesia? No ? 11:58:23 Snore? Yes 11:58:24 Sleep apnea? No 11:58:25 Deviated septum? No 11:58:26 Opens mouth fully? Yes 11:58:26 Sticks out tongue? Yes 11:58:28 Airway obstruction? No ? 11:58:30 Dentures? No ? 11:58:34 Pre procedure: right dorsailis pedis pulse 2+ Normal; easily identifiable; not easily obliterated 11:58:36 Pre procedure: left dorsailis pedis pulse 2+ Normal; easily identifiable; not easily obliterated 11:58:38 Patient pain scale 0/10 ?. 11:58:59 IV patent on arrival in left forearm with 0.9% NaCl at [facility]. 11:59:01 Lab results completed and on chart. 11:59:05 Right groin area was prepped with chlora-prep and draped in sterile fashion 11:59:06 Alarms reviewed by R. N. 11:59:06 Sharps counted by scrub and verified by R.N. 12:01:06 Oxygen 2 l/min etCO2 Nasal cannula was administered by Jane Casarez RN; used for procedure; 12:01:12 Lidocaine 2% 20ml vial added to field was administered by Steven Parmar MD; for local anesthetic; 12::18 Heparin Flush Bag (1000units/500ml NS) 2 bags added to field was administered by Steven Parmar MD; used for procedure; 12::35 0.9% NaCl 100 ml/hr I.V. was administered by Jane Casarez RN; Per physician; 12::46 --------ALL STOP TIME OUT------ 12:09:47 Final Timeout: patient, procedure, and site verified with staff and physician. All members of the team are in agreement. 12:09:49 Right groin site verified by team. 12:09:52 Fire Safety Assessment: A--An alcohol-based skin anteseptic being used preoperatively., C--Open oxygen or nitrous oxide is being used., D--An ESU, laser, or fiber-optic light is being used. 12:09:55 Physical assessment completed. ASA score P 2 - A patient with mild systemic disease as per Steven Parmar MD. 12:10:00 Sedation plan: IV Moderate Sedation Medication:Versed, Fentanyl 12:10:44 Versed 2 mg I.V. was administered by Jane Casarez RN; for sedation; 12:10:51 Fentanyl 100 mcg I.V. was administered by Jane Casarez RN; for sedation; 12:14:16 Use device set Femoral Dx 12:14:17 Tegaderm 4 x 4 (1626W) opened to sterile field. 12:14:18 ACIST Manifold (79439) opened to sterile field. 12:14:20 ACIST Hand Control (26122) opened to sterile field. 12:14:21 ACIST Syringe (05949) opened to sterile field. 12:14:21 Bag Decanter (2001S) opened to sterile field. 12:14:22 Medline Cath Pack ([id number]) opened to sterile field. 12:14:23 DIAGNOSTIC Multipack 5Fr catheter set (EA1428) opened to sterile field. 12:14:24 SHEATH 5FR Brick (MAC244) opened to sterile field. 12:14:25 EMERALD Guide Wire (502-704) opened to sterile field. 12:14:35 Procedure started. 12:14:38 Local anesthetic to right femoral artery with Lidocaine 2% by Steven Parmar MD.INITIAL ACCESS ONLY 12:16:23 Versed 2 mg I.V. was administered by Jane Casarez RN; for sedation; 12:16:52 Zero performed for pressure channel P1 12:17:13 A 5 Fr sheath was inserted into the Right Femoral artery 12:17:33 A MULTIPACK JL 4.0 5Fr catheter was advanced over the wire and used for Procedure. 12:19:01 LCA angiography performed. 12:20:29 Catheter exchanged over wire. 12:20:50 A MULTIPACK 3DRC 5Fr catheter was advanced over the wire and used for Procedure. 12:21:10 RCA angiography performed. 12:21:11 Catheter exchanged over wire. 12:21:12 ACCDominant side:Left 12:21:17 Use device set PARMAR PCI 12:21:20 SHEATH 6FR Brick (PTG832) opened to sterile field. 12:21:24 GUIDE 6FR XBLAD 4.0 catheter ([id number]) opened to sterile field. 12:21:26 BMW 300cm Callao 2 J wire ([id number]) opened to sterile field. 12:21:29 TUBING High Pressure Extension Tubing (Papito) ([id number]) opened to sterile field. 12:21:30 INFLATOR Merit BasixCompak (EC7912) opened to sterile field. 12:22:58 A MULTIPACK Pigtail 5 Fr catheter was advanced over the wire and used for Procedure. 12:23:00 LV angiography performed. 12:23:07 LV gram done using ASIF 12:23:12 EF : 60 % 12:23:13 LV hemodynamics recorded. 12:23:16 Injector settings: Ml/sec: 10, Volume: 20, 12:23:47 Catheter exchanged over wire. 12:24:02 Sheath upsized to a 6 Fr Short. 12:24:10 Pre PCI Site: [place] has 80% stenosis. 12:24:11 Pre PCI Site: [place] has 80% stenosis. 12:24:14 ACC Pre-intervention ROSITA Flow is 3. 12:24:21 6 Fr XBLAD 4 guide catheter was inserted over the wire 12:26:44 BMW wire advanced. 12:26:49 Heparin Bolus 10,000 units I.V. was administered by Jane Casarez RN; for anticoagulation; verified with dr parmar 12:29:39 Versed 2 mg I.V. was administered by Jane Casarez RN; for sedation; 12:30:27 Wire advanced across lesion. 12:34:23 Place stent Inflation Number: 1 A IBAN RX 3.5 x 12 stent ([id number]) was prepped and advanced across the Ramus 80. The stent was deployed at 12 ISMAEL for 0:10 (min:sec) 0. 12:35:17 Inflation number: 2 The stent balloon was then re-inflated across the Ramus 0 to 14 ISMAEL for 0:10 (min:sec) . 12:36:25 Nitroglycerin IC/IA 100 mcg I.C. was administered by Steven Parmar MD; for vasodilation; 12:37:20 Stent catheter was removed intact over wire. 12:39:10 2nd BMW wire advanced. 12:40:40 BMW 190cm Callao 2 J wire ([id number]) opened to sterile field. 12:41:15 Wire advanced across lesion. 12:42:02 Inflation number: 1 The stent balloon was then re-inflated across the Prox CX 80 to 12 ISMAEL for 0:10 (min:sec) 0. 12:44:09 Stent catheter was removed intact over wire. 12:46:24 Inflation number: 3 The stent balloon was then re-inflated across the Ramus 80 to 6 ISMAEL for 0:10 (min:sec) . 12:46:59 Stent catheter was removed intact over wire. 12:47:00 Wire removed. 12:47:00 Wire removed. 12:47:01 Guide catheter removed. 12:47:03 ACC Post-intervention ROSITA Flow is 3. 12:48:00 ACT drawn and resulted at 372 seconds. (normal therapeutic range 180-240 seconds). 12:48:08 Post PCI Site: [place] has 0% stenosis. 12:48:14 Post PCI Site: [place] has 0% stenosis. 12:48:30 EXOSEAL 6Fr (EX600) opened to sterile field. 12:48:40 Sheath removed intact; hemostasis achieved with Exoseal to the Right Femoral artery. 12:48:43 Procedure ended.(Physican Out) 12:50:27 Fluoroscopy time 06.70 minutes. 12:50:31 Flurop Dose total: 2117 12:50:31 Fluoroscopy dose: 2117 mGy 12:50:40 Dose Area Product 708170 mGy/cm. 12:50:45 Contrast amount:Isovue 300 142ml. 12:50:47 Maximum allowable dose exceeded? No. 12:50:47 Sharps counted by scrub and verified by R.N. 12:50:48 Insertion/operative site no bleeding no hematoma. 12:50:50 Post Procedure Pulses reassessed and unchanged 12:50:53 Post-procedure physical assessment completed. ASA score P 2 - A patient with mild systemic disease as per Steven Parmar MD. 12:50:55 Post procedure rhythm: unchanged. 12:50:57 Estimated blood loss: 10 ml 12:50:59 Post procedure instruction explained to patient.Patient verbalizes understanding. 12:50:59 Patient needs reinforcement of post procedure teaching. 12:51:25 Procedure type changed to Cath procedure, Diagnostic procedure, LHC, LHC w/Coronaries, Sedation Charges, Moderate Sedation up to 45 minutes, PCI procedure, Coronary Stent, Coronary Stent Initial, PTCA, PTCA Initial 12:51:31 Procedure and supply charges have been captured, reviewed, submitted and are correct. 12:51:33 Procedure Complication : No complications 12:53:33 Vital chart was stopped 12:53:34 See physician's report for complete and final results. 12:53:37 Report given to PCU. 12:53:46 Patient transfered to PCU with Bed. 12:53:48 Procedure ended. 12:53:48 Full Disclosure recording stopped 12:53:52 End room use (Document Last) 12:54:59 Julieta Gil RT(R) was relieved by Efrain ALDANA(R) as monitoring person Intervention Summary Intervention Notes Time ActionType Lesion and Equipment Used Action# Pressure Duration Attributes 12:34:23 Place stent Ram[place] IBAN RX 3.5 x 1 12 00:10 12 stent ([id number]) 12:35:17 Reinflate Ramus IBAN RX 3.5 x 2 14 00:10 stent 12 stent balloon ([id number]) 12:42:02 Reinflate Prox CX IBAN RX 3.5 x 1 12 00:10 stent 12 stent balloon ([id number]) 12:46:24 Reinflate [place] IBAN RX 3.5 x 3 6 00:10 stent 12 stent balloon ([id number]) Device Usage Item Name Manufacture Quantity Catalog [facility] Part [facility] Lot# / Number Charge Number Stock Stock Serial# Code Tegaderm 4 x 4 3M 1 1626W 119692 [id number] 633076 5 (1626W) ACIST Manifold Acist 1 04964 858566 168134 252080 5 (81963) Medical Systems Inc ACIST Hand Acist 1 33450 578148 984918 091500 5 Control Medical (88966) Systems Inc ACIST Syringe Acist 1 48148 501803 097650 855402 20 (36819) Medical Systems Inc Bag Decanter Microtek 1 2001S 411076 54744 494013 5 (2002S) Medical Inc. Medline Cath Medline 1 [id number] 156533 43134 063542 5 Pack ([id number]) DIAGNOSTIC Cardinal 1 WF7690 848806 73982 364388 30 Multipack 5Fr Health catheter set (PJ5010) SHEATH 5FR Terumo 1 LVO183 991171 903913 070353 5 Brick (CUN994) EMERALD Guide Cardinal 1 502-455 189706 803068 888801 5 Wire (502-455) Health MULTIPACK JL Cardinal 1 625184 5 4.0 5Fr Health catheter MULTIPACK 3DRC Cardinal 1 662590 5 5Fr catheter Health SHEATH 6FR Terumo 1 OIR006 125145 279712 669290 40 Brick (DFI870) GUIDE 6FR Cardinal 1 59729167 506876 306894 394890 3 XBLAD 4.0 Health catheter (17438353) BMW 300cm Duenas 1 [id number] 710887 673173 180596 5 Callao 2 J Vascular wire (3378871I) TUBING High Merit 1 [id number] 039783 53504 990356 10 Pressure Medical Extension Tubing (Parmar) (VL1531X) INFLATOR Merit Merit 1 EG6416 005912 200054 359812 15 BasixComark Medical (PO1105) MULTIPACK Cardinal 1 760532 5 Pigtail 5 Fr Health catheter IBAN RX 3.5 x Medtronic 1 [id number] 778994 1237976 657867 5 [id number] 12 stent ([id number]) BMW 190cm Duenas 1 [id number] 971818 55052 607662 5 Callao 2 J Vascular wire ([id number]) EXOSEAL 6Fr Cardinal 1 EX600 668198 568651 776498 10 (EX600) Health Signature Audit Frederic Stage Time Signature Unsigned Intra-Procedure 02/01/2019 Jane Casarez RN 12:54:41 PM Intra-Procedure 02/01/2019 Efrain Richard 12:55:14 PM RT(R) Intra-Procedure 02/01/2019 Steven Parmar MD 12:56:56 PM [facility] [address] [place] [id number]
[~2019-02-01 06:24] MED LIST changes: +NITROQUICK0.4 MG SL; +RANEXA500 MG PO
[2019-02-01 06:59] LABS: INR 1.02 (0.85-1.17); PROTIME 12.9 SECONDS (11.6-15.0)
[2019-02-01 07:00] LABS: APTT 28.6 SECONDS (22.8-39.4)
[2019-02-01 07:33] LABS: ALBUMIN 4.1 g/dL (3.4-5.0); ALKALINE PHOSPHATASE 123 U/L (46-116); ALT (SGPT) 30 U/L (10-68); BILIRUBIN - TOTAL 0.47 mg/dL (0.2-1.3); CALC OSMOLALITY 285 mosm/kg (275-300); CALCIUM 9.1 mg/dL (8.5-10.1); CARBON DIOXIDE 27.5 mmol/L (21.0-32.0); CHLORIDE - SERUM 103 mmol/L (98-107); CREATININE - SERUM 1.4 mg/dL (0.6-1.3); GLUCOSE 106 mg/dL (74-106); POTASSIUM - SERUM 4.5 mmol/L (3.5-5.1); SODIUM 140 mmol/L (136-145); UREA NITROGEN 31 mg/dL (7-18); eGFR NON AFRICAN AMERICAN 57 mL/min (90-120)
[2019-02-01 07:38] LABS: CKMB 1.6 U/L (0.0-3.6); CREATINE KINASE 243 UL (21-232); MAGNESIUM - SERUM 2.2 mg/dL (1.8-2.4)
[2019-02-01 07:39] LABS: TROPONIN-I < 0.017 ng/mL (0.000-0.060)
[2019-02-01 07:43] LABS: BASOPHILS 0.1 % (0-2); EOSINOPHILS 1.5 % (0-7); HEMATOCRIT 39.2 % (42.0-54.0); HEMOGLOBIN 13.8 g/dL (13.5-17.5); IMMATURE GRANULOCYTES 0.3 % (0-5); LYMPHOCYTES 24.5 % (15-50); MCHC 35.2 g/dL (31.0-37.0); MEAN PLATELET VOLUME 10.1 fL (7.4-10.4); MONOCYTES 11.4 % (2-11); NEUTROPHILS 62.2 % (40-80); PLATELET COUNT 229 10x3/uL (130-400); RBC 4.31 10x6/uL (4.20-6.10); RDW 12.9 % (11.5-14.5); WBC 7.2 10x3/uL (4.8-10.8)
--- NOTE | 2019-02-01 10:00 | NUR ---
PT TRANSPORT DELAYED DUE TO RN RECEIVING ANOTHER PT FROM THIS NURSE. GAVE NURSE TIME IN BETWEEN RECEIVING PATIENTS.
--- NOTE | 2019-02-01 10:14 | NUR ---
RECEIVED PT FROM ER. PT IS AAO AND UP AD BOGDAN. RR EVEN AND UNLABORED ON RA. PIV IS SALINE LOCKED. TELEMETRY PLACED ON PT AND IS RUNNING SINUS BRADYCARDIA AT 56. CONSENTS FOR HEART CATH SIGNED. PT IS NPO. NO S/S OF DISTRESS. PT DENIES ANY NEEDS. WILL CTM.
[2019-02-01 10:29] VITALS: BP 121/76; BMI 40.3
[2019-02-01 10:39] VITALS: BP 118/57
[2019-02-01 10:56] VITALS: Ht 172.7 cm; Wt 120.5 kg
--- NOTE | 2019-02-01 11:21 | NUR ---
PREOP MEDICATIONS ADMININSTERED PER ZIPPER SETTER CHAINSTITCH REQUEST. NS INFUSING @KVO VIA R.AC PIV. WILL CTM.
--- NOTE | 2019-02-01 11:49 | NUR ---
PT TRANSFERED TO MORTGAGE LOAN SPECIALIST.
[2019-02-01 12:21] VITALS: BP 115/64
--- NOTE | 2019-02-01 13:12 | NUR ---
RECEIVED PT FROM COMMISSIONED DEFENCE FORCE OFFICER. PT IS AAO AND WILL BE SUPINE FOR 4 HOURS. NS INFUSING @100ML/HR VIA R.AC PIV. RIGHT FEMORAL CATH SITE IS C/D/I WITH NO S/S OF HEMATOMA PRESENT. WILL CTM.
--- NOTE | 2019-02-01 16:57 | NUR ---
DICUSSED [facility] TO PATIENT AND . WILL CALL AND CHECK ON IN A WEEK. PATIENT LIVES IN [place] AND STILL WORKS, GAVE A HOME WALKING PROGRAM AND INFORMATION ON CARDIAC REHAB.
--- NOTE | 2019-02-01 17:03 | NUR ---
PT DISCHARGED HOME VIA WHEELCHAIR WITH FAMILY. PIV REMOVED WITH CATHETER TIP FULLY INTACT. PT SIGNED PROPER DISCHARGE INSTRUCTIONS AND REMOVED ALL VALUABLES FROM THE ROOM. TELEMETRY REMOVED AND RETURNED.
--- NOTE | 2019-02-04 08:46 | MORECARE ---
CASE MANAGEMENT DISCHARGE SUMMARY PATIENT: WILMER WEISS UNIT: [id number] ADM DATE: 02/01/19 AGE: 48 : 66 SEX: M ROOM/BED: D.2118 AUTHOR: GIULIANO FRANK PHYSICIAN: REFERRING PHYSICIAN: TATIANA ROSA MD DATE OF SERVICE: 02/04/19 Discharge Plan Patient Name: [facility]ILMER WEISS [facility] [facility] 1970 Planned Disposition: Home Anticipated Discharge Date: 02/01/19 Discharge Date: 02/01/2019 Expected LOS: 1 Initial Reviewer: [email or web address] Initial Review Date: 02/04/2019 Generated: 02/04/19 9:45 am Patient Name: WILMER WEISS Page [id number] at 0846 All edits/amendments must be made on the electronic document DICTATION DATE: 02/04/1947 PROPELLANT CHARGE LOADER: GREG 02/04/1947 RPT#: [id number] DC DATE:02/01/19 STATUS: DIS IN [facility] [address] [place] [address] END OF REPORT
== END 2019-02-01 17:04 | disposition home or self-care (01) ==
LOC: OBSVTIME → D.ER 06:24 → D.OPS 06:24 → D.M2 08:45 → OBSVTIME 08:45 → D.ER 08:45 → EDSTATUS 12:43 → D.M2 17:04 → D.OPS 17:04
PROVIDERS: Family Medicine; ATTEND Emergency Medicine
DX: I25.110 Atherosclerotic heart disease of native coronary artery with unstable angina pectoris (principal); I10 Essential (primary) hypertension; E78.5 Hyperlipidemia, unspecified

== ENCOUNTER → 2019-03-13 10:30 | Outpatient (CLI) | payer BC ==
[2019-02-01 10:56] VITALS: BMI 40.3
== END | disposition home or self-care (01) ==
LOC: D.US 03-06 10:30
PROVIDERS: ATTEND Internal Medicine Interventional Cardiology
DX: I70.213 Atherosclerosis of native arteries of extremities with intermittent claudication, bilateral legs (principal)

== ENCOUNTER 2019-09-04 18:57 | Observation (INO) | payer BC ==
[~2019-09-04] VITALS: Ht 172.7 cm; Wt 120.5 kg
[2019-09-04 19:49] LABS: BASOPHILS 0 % (0-2); HEMATOCRIT 41.4 % (42.0-54.0); IMMATURE GRANULOCYTES 0.3 % (0-5); LYMPHOCYTES 30.4 % (15-50); MCH 31.5 pg (26.0-34.0); MCHC 33.8 g/dL (31.0-37.0); MEAN PLATELET VOLUME 9.8 fL (7.4-10.4); MONOCYTES 10.3 % (2-11); PLATELET COUNT 237 10x3/uL (130-400); RBC 4.45 10x6/uL (4.20-6.10); RDW 12.8 % (11.5-14.5); WBC 6.2 10x3/uL (4.8-10.8)
[2019-09-04 20:00] LABS: CALC OSMOLALITY 286 mosm/kg (275-300); CALCIUM 8.4 mg/dL (8.5-10.1); CARBON DIOXIDE 25.5 mmol/L (21.0-32.0); CHLORIDE - SERUM 104 mmol/L (98-107); CREATININE - SERUM 1.3 mg/dL (0.6-1.3); GLUCOSE 116 mg/dL (74-106); POTASSIUM - SERUM 3.8 mmol/L (3.5-5.1); SODIUM 142 mmol/L (136-145); UREA NITROGEN 20 mg/dL (7-18); eGFR NON AFRICAN AMERICAN 62 mL/min (90-120)
[2019-09-04 20:01] LABS: APTT 27.8 SECONDS (22.8-39.4); INR 0.98 (0.85-1.17)
[2019-09-04 20:06] VITALS: BP 117/65
--- NOTE | 2019-09-04 20:06 | NUR ---
EDP NOTIFIED OF PT BP, SEE EMAR. PT C/O 11/21 CHEST PAIN "DUMBO IS SITTING ON MY CHEST AND HE WONT MOVE." BEFORE MORPHINE.
[2019-09-04 20:15] LABS: ALBUMIN 3.8 g/dL (3.4-5.0); ALKALINE PHOSPHATASE 101 U/L (30-120); ALT (SGPT) 36 U/L (10-68); BILIRUBIN - TOTAL 0.45 mg/dL (0.2-1.3); CKMB 1.4 U/L (0.0-3.6); CREATINE KINASE 290 UL (21-232); MAGNESIUM - SERUM 2.1 mg/dL (1.8-2.4); PROTEIN - SERUM 7.7 g/dL (6.4-8.2); TROPONIN-I < 0.017 ng/mL (0.000-0.060)
[2019-09-04 20:30] VITALS: BP 130/71
--- NOTE | 2019-09-04 21:35 | NUR ---
PT RESTING WITH EYES CLOSED, DENIES SOB. STATES CHEST PAIN 07/22. RESPIRATIONS APPEAR EVEN AND UNLABORED. WILL CONTINUE TO MONITOR.
[2019-09-04 22:00] VITALS: BP 134/71
[2019-09-04] MEDS ORDERED: RANEXA1000 MG PO (23:36)
[2019-09-05 00:18] VITALS: BP 130/57; BMI 40.3
[2019-09-05 01:50] LABS: CREATINE KINASE 253 UL (21-232); TROPONIN-I < 0.017 ng/mL (0.000-0.060)
[2019-09-05 04:00] VITALS: BP 114/60
[2019-09-05 07:06] LABS: ALBUMIN 3.6 g/dL (3.4-5.0); ALKALINE PHOSPHATASE 86 U/L (30-120); ALT (SGPT) 34 U/L (10-68); BILIRUBIN - TOTAL 0.71 mg/dL (0.2-1.3); CALC OSMOLALITY 283 mosm/kg (275-300); CALCIUM 8.1 mg/dL (8.5-10.1); CARBON DIOXIDE 28.1 mmol/L (21.0-32.0); CHLORIDE - SERUM 105 mmol/L (98-107); CKMB 1.2 U/L (0.0-3.6); CREATINE KINASE 216 UL (21-232); CREATININE - SERUM 1.2 mg/dL (0.6-1.3); GLUCOSE 95 mg/dL (74-106); MAGNESIUM - SERUM 1.9 mg/dL (1.8-2.4); PHOSPHOROUS 3.5 mg/dL (2.5-4.9); PROTEIN - SERUM 6.6 g/dL (6.4-8.2); SODIUM 141 mmol/L (136-145); TROPONIN-I < 0.017 ng/mL (0.000-0.060); UREA NITROGEN 21 mg/dL (7-18); eGFR NON AFRICAN AMERICAN 68 mL/min (90-120)
[2019-09-05 07:12] LABS: BASOPHILS 0.1 % (0-2); EOSINOPHILS 0.8 % (0-7); HEMATOCRIT 38.8 % (42.0-54.0); HEMOGLOBIN 12.9 g/dL (13.5-17.5); IMMATURE GRANULOCYTES 0.3 % (0-5); LYMPHOCYTES 23.6 % (15-50); MCH 31.2 pg (26.0-34.0); MCHC 33.2 g/dL (31.0-37.0); MCV 93.9 fL (80.0-100.0); MEAN PLATELET VOLUME 9.9 fL (7.4-10.4); MONOCYTES 9.6 % (2-11); NEUTROPHILS 65.6 % (40-80); PLATELET COUNT 217 10x3/uL (130-400); RBC 4.13 10x6/uL (4.20-6.10); RDW 12.9 % (11.5-14.5); WBC 7.5 10x3/uL (4.8-10.8)
[2019-09-05 08:33] VITALS: Ht 172.7 cm; Wt 120.5 kg
[2019-09-05 08:45] VITALS: BP 129/71
--- NOTE | 2019-09-05 11:55 | NUR ---
BACK FROM STRESS TEST. RESUMED.
[2019-09-05 14:15] VITALS: BP 148/79
[2019-09-05 14:31] LABS: CKMB 0.9 U/L (0.0-3.6); CREATINE KINASE 200 UL (21-232)
[2019-09-05 14:39] LABS: TROPONIN-I < 0.017 ng/mL (0.000-0.060)
[2019-09-05 16:22] LABS: CHOL - HDL RATIO 3.6 ratio (2.3-4.9); LDL-HDL RATIO 1.7 ratio (1.5-3.5)
[2019-09-05 16:31] LABS: PLT FUNCT.(P2Y12) PLAVIX 262 PRU (194-418)
[2019-09-05 18:16] VITALS: BP 126/64
[2019-09-05 20:00] VITALS: BP 134/69
[2019-09-06] VITALS: BP 112/63
[2019-09-06 04:00] VITALS: BP 153/79
--- NOTE | 2019-09-06 07:00 | NUR ---
BEDSIDE REPORT RECEIVED. SHIFT ASSESSMENT COMPLETED PER FLOWSHEET, SEE FLOWSHEET FOR INFORMATION. PT DENIES ANY ACUTE NEEDS OR DISTRESS NOTED AT THIS TIME. WILL CONT TO MONITOR.
[2019-09-06 09:05] VITALS: BP 144/72
--- NOTE | 2019-09-06 11:36 | NUR ---
D/C PT TO PERSONAL VEHICLE VIA WHEELCHAIR. IV TAKEN OUT. WILL CONT TO MONITOR.
== END 2019-09-06 11:30 | disposition home or self-care (01) ==
LOC: D.ER 18:57 → OBSVTIME 21:07 → D.M2 21:07
PROVIDERS: Family Medicine; Internal Medicine Cardiovascular Disease; ADMIT Internal Medicine Nephrology; ATTEND Internal Medicine Nephrology
DX: I24.9 Acute ischemic heart disease, unspecified (principal); I25.110 Atherosclerotic heart disease of native coronary artery with unstable angina pectoris; I10 Essential (primary) hypertension; E78.5 Hyperlipidemia, unspecified; I08.0 Rheumatic disorders of both mitral and aortic valves